=== PATIENT | female | born 1975 | race Caucasian/White ===

== ENCOUNTER → 2020-01-24 15:46 | Outpatient (BNVA) | payer SELFPAY | PROVIDERS: Referring Provider Dermatology; Visit Provider Dermatology | DX: R61 Generalized hyperhidrosis (principal); L98.8 Other specified disorders of the skin and subcutaneous tissue; Z41.1 Encounter for cosmetic surgery | CPT/HCPCS: J0585 ==

== ENCOUNTER 2020-02-20 11:56 | Emergency (ER) | payer SELFPAY ==
[2020-02-20 12:11] VITALS: BP 124/81; PULSE 86; RESP 16; TEMP 36.9; O2SAT 98; BMI 32.8
[2020-02-20 13:36] LABS: Alanine Aminotransferase 18 U/L (0-33); Albumin Level 4.6 g/dL (3.5-5.2); Alkaline Phosphatase 89 IU/L (35-105); Anion Gap 14.3 (5-19); Aspartate Amino Transferase 14 U/L (0-32); Blood Urea Nitrogen 7 mg/dL (6-20); Calcium 9.6 mg/dL (8.5-10.5); Carbon Dioxide 24 mmol/L (22-29); Chloride 104 mmol/L (98-107); Globulin 2.6 g/dL (1.3-4.6); Glomerular Filtration Rate 67.7 mL/min (90-130); Glucose 109 mg/dL (65-115); Lipase 24 U/L (13-60); Osmolality Calculated 285 mOsm/kg (285-295); Potassium 4.3 mmol/L (3.5-5.1); Sodium 138 mmol/L (136-145); Total Bilirubin 0.2 mg/dL (0.15-1.2); Total Protein 7.2 g/dL (6.6-8.7)
[2020-02-20 13:48] LABS: Basophils # 0.1 10^3/uL (0.0-0.1); Basophils % 0.7 %; Eosinophils # 0.1 10^3/uL (0.0-0.8); Eosinophils % 1.3 %; Hematocrit 45.5 % (37.0-47.0); Lymphocytes # 2.4 10^3/uL (0.8-4.8); Lymphocytes % 34.8 %; Mean Corpuscular Hemoglobin 31.8 pg (28.0-34.0); Mean Corpuscular Volume 96.4 fL (81-99); Mean Platelet Volume 9.1 fL (7.4-10.4); Monocytes # 0.7 10^3/uL (0.2-0.9); Monocytes % 10.6 %; Neutrophils # 3.63 10^3/uL (1.8-7.7); Neutrophils % 52.3 %; Nucleated Red Blood Cells % 0 %; Platelet Count 322 10^3/cmm (130-400); Red Blood Count 4.72 10^6/uL (4.1-5.3); Red Cell Distribution Width 12.3 % (12.1-15.1)
--- NOTE | 2020-02-20 15:16 | XR_ITS ---
WS: [id number] XR KUB [id number] REASON FOR EXAM: abdominal pain FINDINGS: Postoperative abdomen/pelvis with long line of small sg in the midline mid pelvis. No retroperitoneal air or free air. Moderate amount of stool in the right and left colon. No findings of bowel obstruction. No mass or significant calcification identified. XR/XR KUB 26795 IMPRESSION: No acute abnormality.
--- NOTE | 2020-02-20 15:17 | W.ED.ABDPA2 ---
HPI - Abdominal Pain General: Chief Complaint: Abdominal Pain Stated Complaint: RUPTURED CYST Time Seen by Provider: 02/20/20 14:59 History of Present Illness: HPI narrative: 44-year-old female patient presents to the emergency department with complaints of lower pelvic pain. She reports history of ovarian cyst, history of partial hysterectomy. She reports pain was as bad as labor pain she experienced last night. She went to urgent care this morning secondary to continued pain, urine was negative and was advised to come to the ER for evaluation. She reports completed AZO tablets due to urinary frequency and feeling of inability to empty her bladder. She reports AZO tablets have not helped. MD elicited complaint: abdominal pain Onset (ago): day(s) (1) Pain Consistency: intermittent Location: LLQ, Suprapubic and Pelvis Severity: moderate Quality: cramping and dull Migration to: L flank Exacerbating factors: nothing Associated Symptoms: Reports GI cramping, dysuria and nausea; Denies change in stool character, chills, fever(s), heartburn, hematochezia, hematuria and vomiting Review of Systems General: Reports: 10 or more systems reviewed and unremarkable except in HPI and below Const: Denies: fever(s), chills or diaphoresis Eyes: Denies: blurry vision or eye redness ENMT: Denies: throat pain, dental pain or disequilibrium Card: Denies: chest pain, palpitations or irregular heart rhythm Resp: Denies: dyspnea, productive cough, non-productive cough or wheezing GI: Reports: abdominal pain, nausea and GI cramping; Denies: vomiting, heartburn, pain on defecation, change in stool character or hematochezia : Reports: dysuria, urinary frequency, urinary urgency and pelvic pain; Denies: difficulty voiding, urinary incontinence, hematuria or dysmenorrhea Musc: Denies: neck pain, back pain, extremity pain or joint pain Skin/Breast: Denies: rash or pruritus Neuro: Denies: headache(s), weakness in extremities or behavioral changes Psych: Denies: anxiety or depression Andrey/Lymph: Denies: easy bruising PFSH ED PFSH: Family History Other No pertinent family history in first degree relatives Social History Smoking and tobacco status: never smoked Alcohol intake: never History of recent travel: Yes Physical Exam Const: COMMON NORMALS: no acute distress, patient oriented x3, healthy appearing and alert GENERAL APPEARANCE: cooperative, comfortable and well hydrated HENMT: COMMON NORMALS: normocephalic, Normal external nose present and moist oral mucous membranes HEAD & SCALP: normocephalic NOSE: Normal external nose present Eye: COMMON NORMALS: Equal, round and reactive pupils present and EOMs intact bilaterally GENERAL EYE: appearance normal, both eyes and all related structures PUPIL: Yes Equal, round and reactive pupils present Neck/C-Spine: COMMON NORMALS: full ROM and no lymphadenopathy GENERAL: Yes normal visual inspection and Yes trachea midline CERVICAL SPINE: Yes cervical ROM normal Lymph: LYMPHATIC: no lymphadenopathy noted Chest: COMMONS NORMALS: normal inspection of the chest Resp: COMMON NORMALS: normal respiratory effort and clear to auscultation bilaterally AUSCULTATION: clear to auscultation bilaterally Cardio: COMMON NORMALS: regular rhythm, S1 normal heart sound present and S2 normal heart sound present RHYTHM: regular rhythm HEART SOUNDS: S1 normal heart sound present and S2 normal heart sound present GI: COMMON NORMALS: Soft to palpation INSPECTION: Yes normal to inspection, No abdominal wall ecchymosis and No abdominal distension PALPATION: Yes Soft to palpation, No Firmness to palpation present (GI), Yes Tenderness to palpation present (GI), No Splenomegaly present and Yes Bladder palpation abnormal Details: tender : BLADDER/KIDNEY EXAM: Yes Bladder palpation abnormal and Yes CVA tenderness on the left Back/Pelvis: COMMON NORMALS: thoracic and lumbar spine normal to inspection GENERAL BACK: Yes CVA tenderness Extremity: COMMON NORMALS: normal to inspection and capillary refill normal Neuro: COMMON NORMALS: patient oriented x3 and no focal motor deficits SENSORIUM/ORIENTATION: Yes alert Psych: COMMON NORMALS: mental status grossly normal, Normal thought process present and cooperative ACTIVITY/MOTOR BEHAVIOR: Yes appropriate eye contact THOUGHT PROCESS: Normal thought process present Skin: COMMON NORMALS: no rashes or lesions noted and turgor normal GENERAL SKIN EXAM: no rashes or lesions noted and turgor normal Course ED course: 44-year-old female patient presents to the emergency department with complaints of pelvic pain x24 hours. Renal stone CT completed due to patient's complaint of urinary symptoms, urinary urgency and frequency with history of kidney stone, KUB also completed with normal findings. CT scan appreciated 15 mm partially calcified lesion from the right vaginal cuff, patient will follow-up Dr. Macias in 2 to 3 weeks, pelvic ultrasound has been requested, transvaginal due to patient's pain. Case discussed with Dr. Barr, hydrocodone will be prescribed for pain. To continue ibuprofen, serology and radiology findings discussed with the patient and spouse, questions were answered, agrees to Return to the emergency department if she develops worsening pelvic pain, vaginal bleeding or new concerning symptoms. Pelvic pain was not completed secondary to the amount of COVID patient's in the emergency department. Consultations: Consultation #1: Dr Macias, case discussed, serology, urinalysis and abnormal finding on CT scan of 15 mm vertical lesion, partially calcified, noted. Agrees to see patient in the office for follow-up 2 to 3 weeks, will proceed with outpatient order of pelvic ultrasound. Time: 17:00 Vital Signs: Vital signs: Vital Signs Temperature 98.4 F 02/20/20 12:11 Pulse Rate 88 02/20/20 15:18 Respiratory Rate 18 02/20/20 15:53 Blood Pressure 133/88 02/20/20 15:18 Pulse Oximetry 100 02/20/20 15:18 MDM - Abdominal Pain Lab Data: Labs: Lab Results 02/20/20 02/20/20 02/20/20 Range/Units 13:12 13:12 15:20 WBC 7.0 (4.0-10.0) 10^3/ uL RBC 4.72 (4.1-5.3) 10^6/u L Hgb 15.0 (11.5-15.3) g/dL Hct 45.5 (37.0-47.0) % MCV 96.4 (81-99) fL MCH 31.8 (28.0-34.0) pg MCHC 33.0 (30.0-36.0) g/dL RDW 12.3 (12.1-15.1) % Plt Count 322 (130-400) 10^3/c mm MPV 9.1 (7.4-10.4) fL Neut % (Auto) 52.3 % Lymph % (Auto) 34.8 % [place] % (Auto) 10.6 % Eos % (Auto) 1.3 % Baso % (Auto) 0.7 % Neut # (Auto) 3.63 (1.8-7.7) 10^3/u L Lymph # (Auto) 2.4 (0.8-4.8) 10^3/u L [place] # (Auto) 0.7 (0.2-0.9) 10^3/u L Eos # (Auto) 0.1 (0.0-0.8) 10^3/u L Baso # (Auto) 0.1 (0.0-0.1) 10^3/u L Nucleated RBC % (a uto) 0 % Nucleated RBCs # 0.0 /100WBC Sodium 138 (136-145) mmol/L Potassium 4.3 (3.5-5.1) mmol/L Chloride 104 (98-107) mmol/L Carbon Dioxide 24 (22-29) mmol/L Anion Gap 14.3 (5-19) BUN 7 (6-20) mg/dL Creatinine 0.9 (0.5-0.9) mg/dL GFR Calculation 67.7 L (90-130) mL/min Glucose 109 (65-115) mg/dL Calculated Osmolal ity 285 (285-295) mOsm/k g Calcium 9.6 (8.5-10.5) mg/dL Total Bilirubin 0.2 (0.15-1.2) mg/dL AST 14 (0-32) U/L ALT 18 (0-33) U/L Alkaline Phosphata se 89 (35-105) IU/L Total Protein 7.2 (6.6-8.7) g/dL Albumin 4.6 (3.5-5.2) g/dL Globulin 2.6 (1.3-4.6) g/dL Lipase 24 (13-60) U/L Urine Color Yellow (Yellow) Urine Appearance Clear (CLEAR) Urine pH 5 (5-7) Ur Specific Gravit y 1.025 (1.005-1.030) Urine Protein Neg (Negative) Urine Glucose (UA) Norm (Normal) Urine Ketones Negative (Negative) Urine Blood Neg (Negative) Urine Nitrate Negative (Negative) Urine Bilirubin Neg (Negative) Urine Urobilinogen Norm (Negative) mg/dL Ur Leukocyte [place] ase Negative (Negative) Imaging Data ^: Other Xray: Radiologist's impression: [address] [place] [address] XRay Report Signed Patient: Radha Edwards Unit #: [id number] : 1975 Age/Sex: 44 / F ADM Date: 02/20/20 Loc: ER Room/Bed: Attending Dr: Ordering Provider/Ordering MD: Breanne Cannon Date of Service: 02/20/20 Procedure(s): XR KUB 70101 Accession Number(s): [id number] Report Number: [id number] WS: [id number] XR KUB 18950 REASON FOR EXAM: abdominal pain FINDINGS: Postoperative abdomen/pelvis with long line of small sg in the midline mid pelvis. No retroperitoneal air or free air. Moderate amount of stool in the right and left colon. No findings of bowel obstruction. No mass or significant calcification identified. XR/XR KUB [id number] IMPRESSION: No acute abnormality. Dictated By: Jose Reyes Jr, MD Signed By: Jose Reyes Jr, MD Signed Date/Time: 02/20/20 1554 DD/ 1552 US: Radiologist's impression: [address] [place] [address] CT Scan Report Signed Patient: Radha Edwards Unit #: [id number] : 1975 Age/Sex: 44 / F ADM Date: 02/20/20 Loc: ER Room/Bed: Attending Dr: Ordering Provider/Ordering MD: Breanne Cannon Date of Service: 02/20/20 Procedure(s): CT kidney stone [id number] Accession Number(s): [id number] Report Number: [id number] PROCEDURE INFORMATION: Exam: CT Abdomen And Pelvis Without Contrast Exam date and time: 02/20/2020 3:25 PM Age: 44 years old Clinical indication: Abdominal pain; Prior surgery; Surgery type: Partial hysterectomy; Patient HX: Left flank pain. History of ovarian cancer and prior nephrolithiasis. TECHNIQUE: Imaging protocol: Computed tomography of the abdomen and pelvis without contrast. Radiation optimization: All CT scans at this facility use at least one of these dose optimization techniques: automated exposure control; mA and/or kV adjustment per patient size (includes targeted exams where dose is matched to clinical indication); or iterative reconstruction. COMPARISON: No relevant prior studies available. RADIATION DOSE METRICS: Total DLP (mGy-cm): 1561.09 FINDINGS: Liver: No mass. Gallbladder and bile ducts: Unremarkable. No ductal dilation. Pancreas: Normal. No ductal dilation. Spleen: Normal. No splenomegaly. Adrenals: Normal. No mass. Kidneys and ureters: No calculus or hydronephrosis. Stomach and bowel: No acute findings. No obstruction. No mucosal thickening. Appendix: No evidence of appendicitis. Intraperitoneal space: No free fluid or pneumoperitoneum. Vasculature: No abdominal aortic aneurysm. Lymph nodes: No significant adenopathy. Urinary bladder: Unremarkable as visualized. Reproductive: Hysterectomy. Small partially calcified lesion estimated at 15 mm arising from the right vaginal cuff; recommend direct comparison with prior examination or consider follow-up ultrasound. Bones/joints: No acute findings. Soft tissues: Unremarkable. CT/CT kidney stone [id number] IMPRESSION: No acute findings. Additional findings as above. Radiation Dose CTDIVOL = (mGy): DLP = 1561.09 (mGy-cm) Discharge Plan Discharge Patient Disposition: Home Clinical Impression: Pelvic pain, Abnormal CT of the abdomen, Soft tissue lesion of pelvic region Condition: Stable Prescriptions: New hydrocodone-acetaminophen 5-325 mg tablet 1 tab PO QID PRN (Reason: pain) Qty: 14 RF: 0 ibuprofen 800 mg tablet 800 mg PO TID PRN (Reason: pain) Qty: 20 RF: 0 Zofran 4 mg tablet 4 mg PO TID PRN (Reason: nausea and vomiting) 4 Days Qty: 10 RF: 0 No Action Botox Cosmetic 50 unit recon soln 30 unit IM ONCE Qty: 1 RF: 0 levothyroxine 75 mcg capsule 75 mcg PO DAILY RF: 0 venlafaxine 25 mg tablet 25 mg PO DAILY RF: 0 bupropion HCl 75 mg tablet 75 mg PO DAILY RF: 0 Discharge Orders: Discharge Order (Routine); Ordered 02/20/20 Ordered By: Breanne Cannon Discharge Diet: Usual diet Discharge Activity: Resume usual activity Patient Instructions: Pelvic Pain Activity Restrictions/Additional Instructions: No intercourse as this can precipitate pain You be scheduled to follow-up with [facility] [employer], outpatient pelvic ultrasound has been ordered today, you will be contacted by social work job titles from the hospital with appointment dates and times Take hydrocodone sparingly, medication is addictive, it is not uncommon for narcotics to cause nausea, Zofran has been prescribed for nausea. If you develop worsening abdominal pain, vaginal bleeding, or worsening symptoms such as fever, inability to keep fluids down despite use of Zofran, return to the emergency department. Coding Level of Care Code ED P[employer] And Penc[employer] Dipper for Chg Fwd Exam Comprehensive
[2020-02-20 15:18] VITALS: BP 133/88; PULSE 88; RESP 18; O2SAT 100
--- NOTE | 2020-02-20 15:21 | CTR_ITS ---
PROCEDURE INFORMATION: Exam: CT Abdomen And Pelvis Without Contrast Exam date and time: 02/20/2020 3:25 PM Age: 44 years old Clinical indication: Abdominal pain; Prior surgery; Surgery type: Partial hysterectomy; Patient HX: Left flank pain. History of ovarian cancer and prior nephrolithiasis. TECHNIQUE: Imaging protocol: Computed tomography of the abdomen and pelvis without contrast. Radiation optimization: All CT scans at this facility use at least one of these dose optimization techniques: automated exposure control; mA and/or kV adjustment per patient size (includes targeted exams where dose is matched to clinical indication); or iterative reconstruction. COMPARISON: No relevant prior studies available. RADIATION DOSE METRICS: Total DLP (mGy-cm): 1561.09 FINDINGS: Liver: No mass. Gallbladder and bile ducts: Unremarkable. No ductal dilation. Pancreas: Normal. No ductal dilation. Spleen: Normal. No splenomegaly. Adrenals: Normal. No mass. Kidneys and ureters: No calculus or hydronephrosis. Stomach and bowel: No acute findings. No obstruction. No mucosal thickening. Appendix: No evidence of appendicitis. Intraperitoneal space: No free fluid or pneumoperitoneum. Vasculature: No abdominal aortic aneurysm. Lymph nodes: No significant adenopathy. Urinary bladder: Unremarkable as visualized. Reproductive: Hysterectomy. Small partially calcified lesion estimated at 15 mm arising from the right vaginal cuff; recommend direct comparison with prior examination or consider follow-up ultrasound. Bones/joints: No acute findings. Soft tissues: Unremarkable. CT/CT kidney stone [id number] IMPRESSION: No acute findings. Additional findings as above. Radiation Dose CTDIVOL = (mGy): DLP = 1561.09 (mGy-cm)
[2020-02-20] MEDS: ondansetron 4 MG Tablet PO (15:33)
[2020-02-20 15:34] LABS: Add Urine Microscopic? NO
[2020-02-20 15:53] VITALS: RESP 18
[2020-02-20 15:54] LABS: Bilirubin Urine Neg (Negative); Blood Urine Neg (Negative); Glucose Urine UA Norm (Normal); Ketones Urine Negative (Negative); Leukocyte Esterase Urine Negative (Negative); Nitrate Urine Negative (Negative); Protein Urine Neg (Negative); Specific Gravity, Urine 1.025 (1.005-1.030); Urine Appearance Clear (CLEAR); Urine Color Yellow (Yellow); Urobilinogen Urine Norm (Negative); pH Urine 5 (5-7)
[2020-02-20 17:19] VITALS: RESP 18
--- NOTE | 2020-02-21 09:35 | DCPLANNER ---
education and training manager had message to schedule a follow up appointment for patient with [facility]. education and training manager called the [facility] care [facility], spoke with Deepthi, gave clinic patients information. education and training manager was told that patients information would be printed and reviewed. Clinic will call patient with appointment information. education and training manager also had order for an outpatient pelvic ultrasound. education and training manager faxed order to centralized scheduling, will call for appointment information.
--- NOTE | 2020-02-24 08:08 | DCPLANNER ---
Patient has an appointment with [facility] scheduled for Thursday, February 27, 2020 at 10:[address] Brandt. Clinic will call patient with appointment information. Patient has a pelvic ultrasound scheduled for February at 3:45. Centralized scheduling will call patient with appointment information.
--- NOTE | 2020-03-15 11:20 | DCPLANNER ---
Patient had a follow up appointment scheduled for [facility] scheduled for 02.28.20 - patient did attend appointment. Patient had a ultrasound scheduled for 03.14.20 - appointment rescheduled.
== END 2020-02-20 17:19 | disposition home or self-care (01) ==
PROVIDERS: Family Medicine; Emergency Provider Nurse Practitioner Family
DX: N94.89 Other specified conditions associated with female genital organs and menstrual cycle (principal); R93.5 Abnormal findings on diagnostic imaging of other abdominal regions, including retroperitoneum
CPT/HCPCS: 12345; 74018; 74176; 80053; 81000; 81003; 83690; 85025; 87086; 99281; 99283; Q0162

== ENCOUNTER 2020-03-06 01:31 | Emergency (ER) | payer SELFPAY ==
[2020-03-06 01:36] VITALS: BP 148/110; PULSE 93; RESP 20; TEMP 36.5; O2SAT 98; BMI 32.4
--- NOTE | 2020-03-06 01:41 | ED_ITS ---
HPI - Abdominal Pain General: Chief Complaint: Abdominal Pain Stated Complaint: lower abd pain Time Seen by Provider: 03/06/20 01:32 Source: patient Mode of arrival: ambulatory Limitations: no limitations History of Present Illness: HPI narrative: 44-year-old female who has chronic abdominal pain. She states she been having abdominal pain for 15 years. Patient was seen here 2 weeks ago and had normal CT scan. She was seen by Dr. Brandt is having follow-up with urology tomorrow. She has had a partial hysterectomy. She states that overnight her pain is worsened and is now a 9 out of 10. Denies any fever. Denies any worsening improving factors. Denies any vomiting diarrhea. Associated Symptoms: Denies chills, dysuria and fever(s) Review of Systems Const: Denies: fever(s), chills, body aches or change in appetite Eyes: Denies: blurry vision or eye discomfort ENMT: Denies: throat pain or dental pain Card: Denies: chest pain Resp: Denies: dyspnea GI: Reports: abdominal pain : Denies: dysuria Musc: Denies: neck pain or back pain Skin/Breast: Denies: rash Neuro: Denies: headache(s) Psych: Denies: depression Andrey/Lymph: Denies: easy bruising All/Imm: Denies: urticaria PFSH ED PFSH: Medical History Hypothyroid Lupus Per patient report Surgical History S/P endometrial ablation S/P laparoscopic assisted vaginal hysterectomy (LAVH) Due to bleeding. Performed in [place] approximately 17 years ago. Still has ovaries. Family History Other No pertinent family history in first degree relatives Social History Smoking and tobacco status: never smoked Alcohol intake: never History of recent travel: Yes Physical Exam Const: COMMON NORMALS: no acute distress, patient oriented x3 and healthy appearing HENMT: COMMON NORMALS: normocephalic and atraumatic HEAD & SCALP: normocephalic and atraumatic Eye: COMMON NORMALS: Equal, round and reactive pupils present and EOMs intact bilaterally PUPIL: Yes Equal, round and reactive pupils present Neck/C-Spine: COMMON NORMALS: full ROM and supple Chest: COMMONS NORMALS: normal inspection of the chest and normal palpation of entire chest wall Resp: COMMON NORMALS: normal respiratory effort, No retractions, No use of accessory muscles and clear to auscultation bilaterally AUSCULTATION: clear to auscultation bilaterally Cardio: COMMON NORMALS: regular rate, regular rhythm and No murmurs present (Cardio) RATE: regular rate RHYTHM: regular rhythm GI: COMMON NORMALS: Normal to inspection, nondistended, normoactive bowel sounds present, Soft to palpation, non-tender and no masses PALPATION: Yes Soft to palpation Extremity: COMMON NORMALS: normal to inspection and full ROM Neuro: COMMON NORMALS: patient oriented x3, moves all extremities and no focal motor deficits Psych: COMMON NORMALS: mental status grossly normal, Normal thought process present and cooperative THOUGHT PROCESS: Normal thought process present Skin: COMMON NORMALS: no rashes or lesions noted and no wounds GENERAL SKIN EXAM: no rashes or lesions noted Course Vital Signs: Vital signs: Vital Signs Temperature 97.7 F 03/06/20 01:36 Pulse Rate 88 03/06/20 01:52 Respiratory Rate 18 03/06/20 01:52 Blood Pressure 148/110 03/06/20 01:52 Pulse Oximetry 95 03/06/20 01:52 MDM - Abdominal Pain MDM Narrative: Medical decision making narrative: Patient presents here with abdominal pain that is chronic in nature. Patient had a recent CT that was normal. Patient's blood work here is all normal with no signs of acute surgical abdomen. Patient has follow-up with Dr. Aldridge today. Patient is return if worsening. Medical Records: Attestation: I reviewed the patient's medical records. Lab Data: Labs: Lab Results 03/06/20 03/06/20 03/06/20 Range/Units 01:47 01:47 02:26 WBC 6.4 (4.0-10.0) 10^3/ uL RBC 4.33 (4.1-5.3) 10^6/u L Hgb 13.9 (11.5-15.3) g/dL Hct 40.5 (37.0-47.0) % MCV 93.5 (81-99) fL MCH 32.1 (28.0-34.0) pg MCHC 34.3 (30.0-36.0) g/dL RDW 12.0 L (12.1-15.1) % Plt Count 388 (130-400) 10^3/c mm MPV 9.0 (7.4-10.4) fL Neut % (Auto) 50.2 % Lymph % (Auto) 35.6 % [place] % (Auto) 11.5 % Eos % (Auto) 1.6 % Baso % (Auto) 0.9 % Neut # (Auto) 3.19 (1.8-7.7) 10^3/u L Lymph # (Auto) 2.3 (0.8-4.8) 10^3/u L [place] # (Auto) 0.7 (0.2-0.9) 10^3/u L Eos # (Auto) 0.1 (0.0-0.8) 10^3/u L Baso # (Auto) 0.1 (0.0-0.1) 10^3/u L Nucleated RBC % (a uto) 0 % Nucleated RBCs # 0.0 /100WBC Sodium 139 (136-145) mmol/L Potassium 3.8 (3.5-5.1) mmol/L Chloride 105 (98-107) mmol/L Carbon Dioxide 22 (22-29) mmol/L Anion Gap 15.8 (5-19) BUN 8 (6-20) mg/dL Creatinine 0.7 (0.5-0.9) mg/dL GFR Calculation 90.5 (90-130) mL/min Glucose 130 H (65-115) mg/dL Calculated Osmolal ity 288 (285-295) mOsm/k g Calcium 9.2 (8.5-10.5) mg/dL Total Bilirubin 0.2 (0.15-1.2) mg/dL AST 29 (0-32) U/L ALT 32 (0-33) U/L Alkaline Phosphata se 98 (35-105) IU/L Total Protein 7.0 (6.6-8.7) g/dL Albumin 4.5 (3.5-5.2) g/dL Globulin 2.5 (1.3-4.6) g/dL Lipase 29 (13-60) U/L Urine Color Yellow (Yellow) Urine Appearance Sl cloudy A (CLEAR) Urine pH 6.0 (5-7) Ur Specific Gravit y 1.020 (1.005-1.030) Urine Protein Neg (Negative) Urine Glucose (UA) Norm (Normal) Urine Ketones Negative (Negative) Urine Blood 3+ H (Negative) Urine Nitrate Negative (Negative) Urine Bilirubin Neg (Negative) Urine Urobilinogen 4 H (Negative) mg/dL Ur Leukocyte [place] ase Negative (Negative) Urine RBC 40-50 H (0-2) /hpf Urine WBC 0-4 H (0-5) /hpf Ur Squamous Epith Cells 10-15 H (0-5) /hpf Amorphous Sediment Not Reportable Urine Bacteria 1+ H (NONE) /hpf Urine Mucus 1+ /hpf Discharge Plan Discharge Patient Disposition: Home Clinical Impression: Abdominal pain Qualifiers: Abdominal location: generalized Qualified Code(s): R10.84 - Generalized abdominal pain Condition: Stable Prescriptions: No Action estradiol 0.5 mg tablet 0.5 mg PO DAILY Qty: 30 RF: 12 duloxetine [Cymbalta] 30 mg capsule,delayed release(DR/EC) 30 mg PO DAILY Qty: 30 RF: 12 Botox Cosmetic 50 unit recon soln 30 unit IM ONCE Qty: 1 RF: 0 levothyroxine 75 mcg capsule 75 mcg PO DAILY RF: 0 bupropion HCl 75 mg tablet 75 mg PO DAILY RF: 0 ibuprofen 800 mg tablet 800 mg PO TID PRN (Reason: pain) Qty: 20 RF: 0 Discharge Orders: Discharge Order (Routine); Ordered 03/06/20 Ordered By: Yohannes Temple Referrals: Valerio Farnsworth MD [Primary Care Provider] - 1-3 days Discharge Diet: Advance as tolerated Discharge Activity: Resume usual activity Patient Instructions: Abdominal Pain (ED) Coding Level of Care Code ED Aircraft Engine Mechanic Overhaul for Chg Fwd Exam Comprehensive
[2020-03-06] MEDS: metoclopramide 5 mg/mL SDV 2 mL 10 MG IVP (01:46)
[2020-03-06] MEDS: diphenhydrAMINE 50 mg/mL SDV 1mL IVP (01:47)
[2020-03-06 01:49] VITALS: RESP 18; O2SAT 96
[2020-03-06] MEDS: HYDROmorphone 1 mg/mL INJ 1 mL IVP ×2 (01:49→03:07)
[2020-03-06 01:52] VITALS: BP 148/110; PULSE 88; RESP 18; O2SAT 95
[2020-03-06 02:15] LABS: Basophils # 0.1 10^3/uL (0.0-0.1); Basophils % 0.9 %; Eosinophils # 0.1 10^3/uL (0.0-0.8); Eosinophils % 1.6 %; Hematocrit 40.5 % (37.0-47.0); Hemoglobin 13.9 g/dL (11.5-15.3); Lymphocytes # 2.3 10^3/uL (0.8-4.8); Lymphocytes % 35.6 %; Mean Corpuscular HGB Conc 34.3 g/dL (30.0-36.0); Mean Corpuscular Hemoglobin 32.1 pg (28.0-34.0); Mean Corpuscular Volume 93.5 fL (81-99); Monocytes # 0.7 10^3/uL (0.2-0.9); Monocytes % 11.5 %; Neutrophils # 3.19 10^3/uL (1.8-7.7); Neutrophils % 50.2 %; Nucleated Red Blood Cells % 0 %; Platelet Count 388 10^3/cmm (130-400); Red Blood Count 4.33 10^6/uL (4.1-5.3); White Blood Count 6.4 10^3/uL (4.0-10.0)
[2020-03-06 02:29] LABS: Alanine Aminotransferase 32 U/L (0-33); Albumin Level 4.5 g/dL (3.5-5.2); Alkaline Phosphatase 98 IU/L (35-105); Aspartate Amino Transferase 29 U/L (0-32); Blood Urea Nitrogen 8 mg/dL (6-20); Calcium 9.2 mg/dL (8.5-10.5); Carbon Dioxide 22 mmol/L (22-29); Chloride 105 mmol/L (98-107); Creatinine Clr Calc Pharmacy 111.4805; Globulin 2.5 g/dL (1.3-4.6); Glomerular Filtration Rate 90.5 mL/min (90-130); Glucose 130 mg/dL (65-115); Lipase 29 U/L (13-60); Osmolality Calculated 288 mOsm/kg (285-295); Sodium 139 mmol/L (136-145); Total Bilirubin 0.2 mg/dL (0.15-1.2)
[2020-03-06 02:30] LABS: Anion Gap 15.8 (5-19); Potassium 3.8 mmol/L (3.5-5.1)
[2020-03-06 02:55] LABS: Bilirubin Urine Neg (Negative); Blood Urine 3+ (Negative); Glucose Urine UA Norm (Normal); Ketones Urine Negative (Negative); Nitrate Urine Negative (Negative); Protein Urine Neg (Negative); Urine Color Yellow (Yellow); Urobilinogen Urine 4 mg/dL (Negative)
[2020-03-06 02:56] LABS: Add Urine Microscopic? YES; Bacteria Urine 1+ /hpf; Leukocyte Esterase Urine Negative (Negative); Mucus Urine 1+ /hpf; RBC Urine 40-50 /hpf (0-2); WBC Urine 0-4 /hpf (0-5)
[2020-03-06 02:57] LABS: Add Urine Culture? No
[2020-03-06 03:07] VITALS: RESP 18; O2SAT 99
[2020-03-06 03:08] VITALS: BP 138/93; PULSE 75; RESP 18; O2SAT 99
[2020-03-06 03:25] VITALS: BP 138/93; PULSE 82; RESP 18; O2SAT 98
== END 2020-03-06 03:27 | disposition home or self-care (01) ==
PROVIDERS: Emergency Provider Emergency Medicine; PCP Obstetrics & Gynecology
DX: R10.84 Generalized abdominal pain (principal)
CPT/HCPCS: 12345; 80053; 81001; 83690; 85025; 96374; 96375; 99281; 99283; J1170; J1200; J2765

== ENCOUNTER 2020-04-02 13:50 | Outpatient (CLI) | payer OTHER, SELFPAY ==
--- NOTE | 2020-04-02 14:01 | US_ITS ---
WS: [id number] TRANSABDOMINAL PELVIC AND TRANSVAGINAL PELVIC ULTRASOUND HISTORY: PELVIC LESION INTERNAL COMPARISON: None available. Prior hysterectomy. No midline soft tissue mass identified. Right ovary: RIGHT ovary is not visualized. Left ovary: 2.6 cm x 1.7 cm x 1.4 cm. Normal size ovary. Normal vascularity. Adjacent and lateral to the LEFT ovary is an ovoid minimally complex cystic mass measuring 2.0 x 1.0 x 1.5 cm. No increased v ascularity. No free fluid. US/US pelvic with transvaginal IMPRESSION: 1. Prior hysterectomy. 2. Normal size LEFT ovary with an adjacent cystic structure measuring 2.0 x 1. 0 x 1.5 cm. Differential includes exophytic ovarian cyst, endometrioma or parao varian cyst. No solid mass identified.
== END 2020-04-02 13:51 | disposition home or self-care (01) ==
LOC: RAD 13:59
PROVIDERS: Visit Provider Nurse Practitioner Family
DX: N94.89 Other specified conditions associated with female genital organs and menstrual cycle (principal)
CPT/HCPCS: 76830; 76856

== ENCOUNTER 2020-05-24 11:19 | Emergency (ER) | payer OTHER, SELFPAY ==
[2020-05-24 11:54] VITALS: BP 118/80; PULSE 97; RESP 20; TEMP 37.7; O2SAT 93; BMI 32.9
[2020-05-24 12:54] VITALS: BP 122/83; PULSE 97; RESP 20; TEMP 37.7; O2SAT 93
--- NOTE | 2020-05-24 12:55 | PC.NURSE ---
In COVID waiting room.
--- NOTE | 2020-05-24 13:35 | XR_ITS ---
WS: [id number] Portable AP upright chest, 05/24/2020 Clinical Data: dypsena/covid Comparison: None. Findings: No nodules, masses or effusions are seen. The heart is normal. The pulmonary vascularity is not increased. No pneumothorax is seen. Patchy peripheral opacities are seen in the right middle lob e, right lower lobe and the right upper lobe. The left lung shows minimal opacity in the left lower l obe. . XR/XR chest 1V portable [id number] Impression: Minimal patchy opacities in right lung and left lower lobe which are consistent with pneumonia.
--- NOTE | 2020-05-24 14:07 | ED_ITS ---
HPI - COVID General: Chief Complaint: COVID symptoms Stated Complaint: SOB, HARD SWALLOW, COVID POSITIVE Time Seen by Provider: 05/24/20 13:35 Triage information: Has fever, cough or shortness of breath . Exposure to COVID + person last 14 days History of Present Illness: HPI Narrative: 44 yo female present 2 days after a positive covid test and approximately 8-10 days after onset of symtpoms. She is having persistent nausea and vomiting unable to keep any food or fluids down mild cough. Her nausea and vomiting and flulike myalgias are her predominant symptoms. MD complaint: known COVID positive Prior covid testing: yes, results known Prior testing date: 05/22/20 COVID 19 common symptoms: positive fever(s), chills, cough, non-productive cough, dyspnea, fatigue, body aches, nasal congestion, nausea and vomiting COVID 19 other sytmptoms: negative chest pain or requiring oxygen Onset (ago): day(s) Severity: moderate Treatment prior to arrival: acetaminophen, ibuprofen and other (Antiemetics) COVID Results: No Data to Display Review of Systems Const: Reports: fever(s), chills, body aches and fatigue ENMT: Reports: nasal congestion Card: Denies: chest pain, edema, dyspnea on exertion or orthopnea Resp: Reports: dyspnea and non-productive cough GI: Reports: nausea and vomiting : Denies: flank pain, difficulty voiding, dysuria, urinary frequency or urinary urgency Skin/Breast: Denies: rash or pruritus PFSH ED PFSH: Medical History (Updated 05/24/20 @ 17:48 by Chi Santiago DO) Hypothyroid Lupus Per patient report. Patient presumably diagnosed 5 years ago not on medications does not see orthodontic assistant Surgical History S/P endometrial ablation S/P laparoscopic assisted vaginal hysterectomy (LAVH) Due to bleeding. Performed in [place] approximately 17 years ago. Still has ovaries. Family History Other No pertinent family history in first degree relatives Social History Smoking and tobacco status: never smoked Alcohol intake: never Marital status: Current occupational status: unemployed History of recent travel: Yes Physical Exam Const: COMMON NORMALS: no acute distress GENERAL APPEARANCE: cooperative and comfortable ORIENTATION/CONSCIOUSNESS: Yes awake, Yes oriented to person, Yes oriented to place and Yes oriented to time HENMT: COMMON NORMALS: normocephalic, atraumatic and hearing grossly normal bilaterally HEAD & SCALP: normocephalic and atraumatic Neck/C-Spine: COMMON NORMALS: no JVD Lymph: LYMPHATIC: no lymphadenopathy noted and no lymphedema noted Resp: COMMON NORMALS: normal respiratory effort, No retractions, No use of accessory muscles and clear to auscultation bilaterally AUSCULTATION: clear to auscultation bilaterally Cardio: COMMON NORMALS: no JVD, regular rate, regular rhythm and No murmurs present (Cardio) RATE: regular rate RHYTHM: regular rhythm GI: COMMON NORMALS: No hepatosplenomegaly present AUSCULTATION: Yes normoactive bowel sounds PALPATION: Yes Tenderness to palpation present (GI), No Guarding due to palpation present (GI) and Yes No hepatosplenomegaly present Extremity: COMMON NORMALS: normal to inspection, capillary refill normal, no clubbing, cyanosis or edema, no calf tenderness and no pedal edema Neuro: SENSORIUM/ORIENTATION: Yes oriented to person, Yes oriented to place and Yes oriented to time Skin: COMMON NORMALS: no rashes or lesions noted GENERAL SKIN EXAM: no rashes or lesions noted Course Vital Signs: Vital signs: Vital Signs Temperature 99.8 F H 05/24/20 12:54 Pulse Rate 97 05/24/20 15:04 Respiratory Rate 16 05/24/20 15:04 Blood Pressure 128/80 05/24/20 15:04 Pulse Oximetry 97 05/24/20 15:15 MDM - COVID MDM Narrative: Medical decision making narrative: Made attempts to treat the patient as an outpatient however she has persistent nausea vomiting she is requiring 3 L by nasal cannula fairly extensive groundglass infiltrates and mild immune suppression. We initially plan to admit her however. We have multiple boarded patients down here and do not anticipate any other rooms opening up. And talk to Dr. Rios. We were able to find a bed at [facility] in [place] talk to Dr. Veronica Peguero he will accept the patient orders for transfer have been written. Lab Data: Labs: Lab Results 05/24/20 05/24/20 05/24/20 Range/Units 14:53 14:53 14:53 WBC 1.5 L (4.0-10.0) 10^3/ uL RBC 4.34 (4.1-5.3) 10^6/u L Hgb 13.5 (11.5-15.3) g/dL Hct 41.2 (37.0-47.0) % MCV 94.9 (81-99) fL MCH 31.1 (28.0-34.0) pg MCHC 32.8 (30.0-36.0) g/dL RDW 12.2 (12.1-15.1) % Plt Count 323 (130-400) 10^3/c mm MPV 8.6 (7.4-10.4) fL Neut % (Auto) 54.0 % Lymph % (Auto) 25.7 % Green % (Auto) 18.9 % Eos % (Auto) 0.0 % Baso % (Auto) 0.7 % Neut # (Auto) 0.80 L* (1.8-7.7) 10^3/u L Lymph # (Auto) 0.4 L (0.8-4.8) 10^3/u L Green # (Auto) 0.3 (0.2-0.9) 10^3/u L Eos # (Auto) 0.0 (0.0-0.8) 10^3/u L Baso # (Auto) 0.0 (0.0-0.1) 10^3/u L Nucleated RBC % (a uto) 0 % Nucleated RBCs # 0.0 /100WBC D-Dimer 0.88 H (0-0.59) ug/mIFE U Sodium 134 L (136-145) mmol/L Potassium 4.1 (3.5-5.1) mmol/L Chloride 97 L (98-107) mmol/L Carbon Dioxide 25 (22-29) mmol/L Anion Gap 16.1 (5-19) BUN 11 (6-20) mg/dL Creatinine 0.7 (0.5-0.9) mg/dL GFR Calculation 90.5 (90-130) mL/min Glucose 133 H (65-115) mg/dL Calculated Osmolal ity 279 L (285-295) mOsm/k g Calcium 8.7 (8.5-10.5) mg/dL Total Bilirubin 0.3 (0.15-1.2) mg/dL AST 39 H (0-32) U/L ALT 27 (0-33) U/L Alkaline Phosphata se 152 H (35-105) IU/L Total Protein 7.1 (6.6-8.7) g/dL Albumin 4.0 (3.5-5.2) g/dL Globulin 3.1 (1.3-4.6) g/dL COVID Results: No Data to Display Discharge Plan Discharge Patient Disposition: Xfer Short-Term Hosp Clinical Impression: COVID-19, Nausea & vomiting Condition: Stable Coding Level of Care Code ED Station Engineer for Abeba Fwd Exam Comprehensive
[2020-05-24] MEDS: ondansetron 2 mg/ML SDV 2 mL 4 MG IVP (14:44)
[2020-05-24] MEDS: sodium chloride 0.9% 1,000 ML 999 ML IV ×2 (14:58→16:07)
[2020-05-24 15:04] VITALS: BP 128/80; PULSE 97; RESP 16; O2SAT 89
[2020-05-24 15:10] LABS: Basophils % 0.7 %; Hematocrit 41.2 % (37.0-47.0); Hemoglobin 13.5 g/dL (11.5-15.3); Lymphocytes # 0.4 10^3/uL (0.8-4.8); Lymphocytes % 25.7 %; Mean Corpuscular HGB Conc 32.8 g/dL (30.0-36.0); Mean Corpuscular Hemoglobin 31.1 pg (28.0-34.0); Mean Corpuscular Volume 94.9 fL (81-99); Mean Platelet Volume 8.6 fL (7.4-10.4); Monocytes # 0.3 10^3/uL (0.2-0.9); Monocytes % 18.9 %; Nucleated Red Blood Cells % 0 %; Platelet Count 323 10^3/cmm (130-400); Red Blood Count 4.34 10^6/uL (4.1-5.3); Red Cell Distribution Width 12.2 % (12.1-15.1); White Blood Count 1.5 10^3/uL (4.0-10.0)
[2020-05-24 15:15] VITALS: BP 128/80; PULSE 96; O2SAT 91; O2SAT 97
[2020-05-24 15:25] LABS: D Dimer 0.88 ug/mIFEU (0-0.59)
[2020-05-24 15:28] LABS: Alanine Aminotransferase 27 U/L (0-33); Alkaline Phosphatase 152 IU/L (35-105); Anion Gap 16.1 (5-19); Aspartate Amino Transferase 39 U/L (0-32); Blood Urea Nitrogen 11 mg/dL (6-20); Calcium 8.7 mg/dL (8.5-10.5); Carbon Dioxide 25 mmol/L (22-29); Chloride 97 mmol/L (98-107); Globulin 3.1 g/dL (1.3-4.6); Glomerular Filtration Rate 90.5 mL/min (90-130); Glucose 133 mg/dL (65-115); Osmolality Calculated 279 mOsm/kg (285-295); Potassium 4.1 mmol/L (3.5-5.1); Sodium 134 mmol/L (136-145); Total Bilirubin 0.3 mg/dL (0.15-1.2); Total Protein 7.1 g/dL (6.6-8.7)
--- NOTE | 2020-05-24 15:50 | CTR_ITS ---
PROCEDURE INFORMATION: Exam: CT Angiography Chest With Contrast Exam date and time: 05/24/2020 3:59 PM Age: 44 years old Clinical indication: Patient HX: Covid+ C/O cough, n/v and difficulty swallowing; Additional info: Dyspnea/covid TECHNIQUE: Imaging protocol: Computed tomographic angiography of the chest with intravenous contrast. 3D rendering (Not supervised by radiologist): MIP and/or 3D reconstructed images were created by the technologist. Total images: 784 Radiation optimization: All CT scans at this facility use at least one of these dose optimization techniques: automated exposure control; mA and/or kV adjustment per patient size (includes targeted exams where dose is matched to clinical indication); or iterative reconstruction. Contrast material: OMNI 350; Contrast volume: 66 ml; Contrast route: INTRAVENOUS (IV); COMPARISON: CR XR chest 1V portable [id number] 05/24/2020 1:47 PM RADIATION DOSE METRICS: Total DLP (mGy-cm): 523.68 FINDINGS: Pulmonary arteries: No visible evidence of pulmonary embolism/pulmonary arterial thrombus. Aorta: The thoracic aorta is nonaneurysmal. No visible intimal flap or dissection. Lungs: Bilateral patchy ground-glass interstitial lung disease with early subsegmental consolidation and associated air bronchograms involving primarily the right lung and left upper lobe with relative sparing of the lingula and left lower lobe consistent with active pneumonitis/pneumonia. Overall findings would be consistent with Covid-19 pneumonitis/pneumonia. Pleural space: Unremarkable. No pneumothorax. No pleural effusion. Heart: No visible significant coronary artery disease. No cardiomegaly. No visible pericardial effusion. Mediastinal space: Esophagus appears unremarkable. Lymph nodes: Mildly prominent mediastinal and hilar lymph nodes most likely reactive. Liver: Mild diffuse fatty infiltration of the liver. Gallbladder and bile ducts: Partial hepatization of the gallbladder. Bones/joints: No visible active or acute osseous pathology. Mild degenerative disease of the spine. Soft tissues: Unremarkable. CT/CT angio chest PE protcl [id number] IMPRESSION: 1. No visible evidence of pulmonary embolism/pulmonary arterial thrombus. 2. Findings consistent with Covid-19 pneumonitis/pneumonia as detailed in text. 3. Other nonurgent & nonemergent findings as detailed in text above. Radiation Dose CTDIVOL = (mGy): DLP = 523.68 (mGy-cm)
[2020-05-24] MEDS: promethazine 25 mg/mL SDV 1 mL IM (16:04)
[2020-05-24] MEDS: dexamethasone 4 mg/mL INJ 6 MG IVP (16:06)
[2020-05-24] MEDS: iohexol 350 mg/mL 100 mL Btl IV (16:36)
[2020-05-24 17:00] VITALS: BP 107/61; PULSE 97; O2SAT 94
[2020-05-24] MEDS: remdesivir 200 MG in sodium chloride 0.9% (100 ml) 100 ML 100 MG IV (18:29)
[2020-05-24 18:30] VITALS: BP 115/79; PULSE 103; O2SAT 94
[2020-05-24] MEDS: promethazine 25 mg/mL SDV 1 mL 12.5 MG IM (18:30)
== END 2020-05-24 19:05 | disposition short-term general hospital (02) ==
PROVIDERS: Emergency Provider Family Medicine
DX: U07.1 COVID-19 (principal); R11.2 Nausea with vomiting, unspecified
CPT/HCPCS: 12345; 71045; 71275; 80053; 85025; 85378; 96361; 96365; 96372; 96375; 99283; 99285; J1100; J2405; J2550; J7030; Q9967

== ENCOUNTER 2020-07-05 07:47 | Outpatient (CLI) | payer OTHER, SELFPAY ==
--- NOTE | 2020-07-05 07:59 | NM_ITS ---
WS: [id number] NUCLEAR MEDICINE HIDA SCAN WITH GALLBLADDER EJECTION FRACTION HISTORY: FATTY LIVER COMPARISON: 06/20/2020 TECHNIQUE: The patient was intravenously injected with 7.7 mCi of TC99m Mebrofenin. Immediate imaging over the right upper quadrant was followed by 5 minute image and additional images for a total of 60 minutes. Normal uptake of radiotracer throughout the liver. Activity identified in the gallbladder at 15 minutes and well distended by 60 minutes. Activity in the proximal small bowel was seen by 60 minutes. Good washout of the radiotracer from the liver by 60 minutes. The patient then drank 8 ounces of Ensure Plus. Ejection fraction at 60 minutes was 82%. Normal GB ej ection fraction is 35-75%. Post fatty meal symptoms: None. NM/NM hepatobiliary w phar* [id number] IMPRESSION: 1. Normal HIDA scan. 2. Normal gallbladder ejection fraction.
== END 2020-07-05 07:48 | disposition home or self-care (01) ==
PROVIDERS: PCP Nurse Practitioner; Visit Provider Nurse Practitioner
DX: K76.0 Fatty (change of) liver, not elsewhere classified (principal)
CPT/HCPCS: 78227; A9537

== ENCOUNTER 2020-08-06 20:00 | Outpatient (CLI) | payer OTHER, SELFPAY | END 2020-08-06 20:01 | disposition home or self-care (01) | LOC: SLEEP 08-07 08:16 | PROVIDERS: PCP Nurse Practitioner; Visit Provider Nurse Practitioner | DX: G47.10 Hypersomnia, unspecified (principal); R53.83 Other fatigue; R06.83 Snoring; G47.33 Obstructive sleep apnea (adult) (pediatric) | CPT/HCPCS: 95810 ==

== ENCOUNTER → 2020-08-14 11:06 | Outpatient (BNVA) | payer OTHER, SELFPAY | PROVIDERS: PCP Nurse Practitioner; Visit Provider Internal Medicine Rheumatology | DX: M32.9 Systemic lupus erythematosus, unspecified (principal); R21 Rash and other nonspecific skin eruption; R76.8 Other specified abnormal immunological findings in serum; Z79.899 Other long term (current) drug therapy; R10.32 Left lower quadrant pain; Z86.16 Personal history of COVID-19 | CPT/HCPCS: 99204 ==

== ENCOUNTER 2021-11-11 17:17 | Emergency (ER) | payer MEDICAID, SELFPAY ==
[2021-11-11 17:51] VITALS: BP 132/77; PULSE 88; RESP 14; TEMP 37; O2SAT 97; BMI 33.3
--- NOTE | 2021-11-11 17:59 | W.ED.BACK ---
HPI - Back Pain/Injury General: Chief Complaint: Back Pain/Injury Stated Complaint: back pain/burning Time Seen by Provider: 11/11/21 17:58 History of Present Illness: 46-year-old female comes in today with complaints of low back pain. Patient reports a history of a herniated disc in the past. Patient reports that she has been working in the garden and today she reached to get something and felt a sudden onset of pain and discomfort. Since that time patient has had some mild difficulty with urination but no loss of bowel or bladder control. Patient reports no fever. Patient appears in mild pain. Patient appears nontoxic. Review of Systems General: Reports: 10 or more systems reviewed and unremarkable except in HPI and below Card: Denies: chest pain Resp: Denies: dyspnea Musc: Reports: back pain Skin/Breast: Denies: rash PFSH ED PFSH: Medical History (Updated 11/11/21 @ 19:42 by NANDO Moreland) Chronic cystitis Hypothyroid Left groin pain Lupus Hx of positive serology? Skin rash Stress incontinence Surgical History S/P endometrial ablation S/P laparoscopic assisted vaginal hysterectomy (LAVH) Due to bleeding. Performed in [place] approximately 17 years ago. Still has ovaries. Family History (Updated 08/14/20 @ 11:57 by Paula Cornelius LPN) Other CAD (coronary artery disease) Cancer No pertinent family history in first degree relatives Rheumatoid arthritis Denies family history of Diabetes Lupus Hypertension Stroke Social History Smoking and tobacco status: never smoked Alcohol intake: never Marital status: Current occupational status: unemployed History of recent travel: Yes Physical Exam Const: COMMON NORMALS: alert Neck/C-Spine: COMMON NORMALS: full ROM Resp: COMMON NORMALS: normal respiratory effort Cardio: COMMON NORMALS: regular rate RATE: regular rate GI: COMMON NORMALS: non-tender Back/Pelvis: THORACIC SPINE/UPPER BACK: No thoracic spinal tenderness LUMBAR SPINE/LOWER BACK: No lumbar spinal tenderness and Yes paraspinal muscle tenderness Extremity: COMMON NORMALS: normal to inspection Neuro: SENSORIUM/ORIENTATION: Yes alert Skin: COMMON NORMALS: no rashes or lesions noted GENERAL SKIN EXAM: no rashes or lesions noted Course Vital Signs: Vital signs: Vital Signs Temperature 98.6 F 11/11/21 17:51 Pulse Rate 88 11/11/21 17:51 Respiratory Rate 14 11/11/21 17:51 Blood Pressure 132/77 11/11/21 17:51 Pulse Oximetry 97 11/11/21 17:51 MDM - Back Pain/Injury Medical Decision Making 46-year-old female comes in today with low back pain. Patient has a history of chronic back pain. Patient reports she was gardening and went to grab something and had sudden increase pain with radiation down her leg. On exam patient has no tenderness along the lumbar or thoracic spine. Patient does have bilateral muscle tenderness. Vital signs are normal. Differential diagnosis includes lumbar radiculopathy, lumbar strain, intervertebral disc disease, facet arthropathy. CT noted some multilevel degenerative changes of the spine. No sign of significant impingement of the spinal column. Reviewed exam with patient with recommendations for treatment follow-up with Dr. Webb at orthopedic spine clinic. Patient was written for some celecoxib and hydrocodone for her pain control. Patient was recommended to follow-up with primary care otherwise for further evaluation and treatment. Labs Radiology Impressions Lumbar Spine CT 11/11/21 18:07 IMPRESSION: 1. No fracture or acute finding. 2. Mild multilevel degenerative changes as described. Discharge Plan Discharge Patient Disposition: Home Clinical Impression: Lumbar radiculopathy Condition: Stable Prescriptions: New celecoxib 200 mg capsule 200 mg PO BID Qty: 30 0RF hydrocodone-acetaminophen 5-325 mg tablet 1 tab PO Q6H PRN (Reason: pain (scale score 7-10)) Qty: 10 0RF No Action bupropion HCl 300 mg tablet extended release 24 hr 300 mg PO QAM 0RF levothyroxine 88 mcg capsule 88 mcg PO DAILY 0RF glycopyrrolate 1 mg tablet 1 mg PO TID 0RF ibuprofen 800 mg tablet 800 mg PO TID PRN (Reason: pain) Qty: 20 0RF Discharge Orders: Discharge ED (Routine); Ordered 11/11/21 Ordered By: Teo Love Referrals: Carin Johnson NP [Primary Care Provider] - Discharge Diet: Usual diet Discharge Activity: Increase activity as tolerated Patient Instructions: Back Pain (ED) Activity Restrictions/Additional Instructions: Activity as tolerated. Gentle stretching and range of motion exercises. Drink plenty of water. Use acetaminophen and celecoxib for pain and inflammation. Use hydrocodone for severe pain. Follow-up with primary care for further instruction. Return to ER for new concerns such as fever greater than 100.4, loss of bowel or bladder control, or uncontrolled pain. Coding Level of Care Code ED Director Of Income Tax for Chg Fwd Exam Comprehensive
--- NOTE | 2021-11-11 18:07 | CTR_ITS ---
PROCEDURE INFORMATION: Exam: CT Lumbar Spine Without Contrast Exam date and time: 11/11/2021 6:44 PM Age: 46 years old Clinical indication: Weakness; Prior surgery; Surgery type: Hysterectomy; Patient HX: C/O low back pain with tingling in both legs. ; Additional info: Lumar radiculopathy TECHNIQUE: Imaging protocol: Computed tomography of the lumbar spine without contrast. Radiation optimization: All CT scans at this facility use at least one of these dose optimization techniques: automated exposure control; mA and/or kV adjustment per patient size (includes targeted exams where dose is matched to clinical indication); or iterative reconstruction. COMPARISON: CT kidney stone [id number] 02/20/2020 3:50 PM RADIATION DOSE METRICS: Total DLP (mGy-cm): 2101.6 FINDINGS: Bones/joints: The vertebral body alignment and stature is intact. No fracture or subluxation. The facets are intact with mild degenerative changes. L1-L2: No significant disc protrusion. No severe spinal canal stenosis. No significant neural foraminal narrowing. L2-L3: Mild circumferential disc bulge. Mild bilateral foraminal narrowing. No central canal stenosis. L3-L4: Mild circumferential disc bulge. Moderate bilateral foraminal stenosis. Mild central canal stenosis. L4-L5: Mild circumferential disc bulge. Mild bilateral foraminal stenosis. Mild central canal stenosis. L5-S1: Disc space narrowing with degenerative endplate changes. Mild circumferential disc bulge with posterior endplate spurring. Mild bilateral foraminal stenosis. No central canal stenosis. Soft tissues: Unremarkable. CT/CT lumbar spine wo con* [id number] IMPRESSION: 1. No fracture or acute finding. 2. Mild multilevel degenerative changes as described.
[2021-11-11] MEDS: ketorolac 30 mg/mL INJ IM (18:35)
[2021-11-11] MEDS: HYDROcodone-acetaminophen 7.5-325 mg Tablet 1 TAB PO (18:35)
--- NOTE | 2021-11-17 10:48 | DCPLANNER ---
Addendum entered by Rajwinder Allen 12/08/21 11:34: Patient had a follow up appointment scheduled for 12.04.21 with Anjel Germain at ortho - patient did attend appointment. Original Note: center human resources manager had message to schedule a follow up appointment for patient with ortho. center human resources manager sent patients information to the front office staff at ortho. Patients information will be printed and reviewed. Clinic will call patient with appointment information.
== END 2021-11-11 19:58 | disposition home or self-care (01) ==
PROVIDERS: Emergency Provider Nurse Practitioner Family; PCP Nurse Practitioner
DX: M54.16 Radiculopathy, lumbar region (principal)
CPT/HCPCS: 72131; 96372; 99284; J1885

== ENCOUNTER 2021-12-04 | Outpatient (CLI) | payer MEDICAID, SELFPAY | END 2021-12-04 23:59 | disposition home or self-care (01) | LOC: RAD 12-15 16:53 | PROVIDERS: PCP Nurse Practitioner; Visit Provider Physician Assistant | DX: M47.817 Spondylosis without myelopathy or radiculopathy, lumbosacral region (principal) | CPT/HCPCS: 72100 ==

== ENCOUNTER → 2021-12-04 09:56 | Outpatient (BNVA) | payer MEDICAID, SELFPAY | PROVIDERS: PCP Nurse Practitioner; Referring Provider Nurse Practitioner Family; Visit Provider Physician Assistant | DX: M54.16 Radiculopathy, lumbar region (principal); M51.37 Other intervertebral disc degeneration, lumbosacral region | CPT/HCPCS: 99203; 99204 ==

== ENCOUNTER → 2022-02-19 14:01 | Outpatient (BNVA) | payer MEDICAID, SELFPAY | PROVIDERS: PCP Nurse Practitioner; Visit Provider Physician Assistant | DX: M51.37 Other intervertebral disc degeneration, lumbosacral region (principal); M54.16 Radiculopathy, lumbar region | CPT/HCPCS: 72100; 72110 ==

== ENCOUNTER 2022-03-10 07:02 | Outpatient (CLI) | payer MEDICAID, SELFPAY ==
--- NOTE | 2022-03-10 07:15 | MR_ITS ---
WS: [id number] MRI LUMBAR SPINE NONCONTRAST TECHNIQUE: Sagittal T1, T2 and STIR imaging. Axial T1 and T2 imaging. CLINICAL INFORMATION: lumbar pain COMPARISON: CT 11/11/21 FINDINGS: Mild lumbar curve. No acute compression. Disc bulging worse L4-L5 and L5-S1. L1-L2: Normal. L2-L3: Mild annular bulging. Mild facet arthropathy. Spinal canal and foramen are patent. L3-L4: Mild annular bulging with a small annular fissure. Mild central canal stenosis and narrowing o f the thecal sac. Advanced facet arthropathy ligament flavum hypertrophy. Small facet effusions. Sugg estion of a tiny synovial cyst with narrowing of the RIGHT subarticular recess and traversing RIGHT L 4 nerve root. RIGHT eccentric disc bulging contacts the exiting RIGHT L3 nerve root. Prominent dorsal epidural fat. Mild to moderate RIGHT greater than LEFT foraminal narrowing. Impingement on the exiti ng RIGHT L3 nerve root. L4-L5: Central disc protrusion impinges the traversing LEFT L5 nerve root in the subarticular recess. Mild central canal stenosis. Moderate facet arthropathy. Mild LEFT foraminal narrowing. L5-S1: Shallow central disc protrusion slightly impinges the traversing RIGHT greater than LEFT S1 ne rve roots. Moderate facet arthropathy. Mild bilateral foraminal narrowing. Visualized pelvic bony structures: Normal. Paravertebral soft tissues: Normal. MR/MR lumbar spine wo con* [id number] IMPRESSION: 1. Mild central canal stenosis L3-L4 due to disc bulging with a small annular tear.Advanced facet arthropathy ligamentum flavum hypertrophy and prominent digna ede epidural fat contributes to stenosis. 2. Suggestion of a tiny RIGHT subarticular synovial cyst L3-L4 impinges the RI GHT subarticular recess and traversing RIGHT L4 nerve root. 3. RIGHT foraminal protrusion L3-L4 slightly impinges the exiting RIGHT L3 ner ve root. 4. Shallow LEFT pericentral protrusion L4-L5 impinges the traversing LEFT L5 n erve root with mild central canal stenosis. 5. Shallow central protrusion L5-S1 slightly contacts the traversing S1 nerve roots.
== END 2022-03-10 07:03 | disposition home or self-care (01) ==
LOC: RAD 07:03
PROVIDERS: PCP Nurse Practitioner; Visit Provider Physician Assistant
DX: M48.061 Spinal stenosis, lumbar region without neurogenic claudication (principal); M51.26 Other intervertebral disc displacement, lumbar region; M51.27 Other intervertebral disc displacement, lumbosacral region
CPT/HCPCS: 72148

== ENCOUNTER → 2022-08-17 11:37 | Outpatient (BNVA) | payer MEDICAID, SELFPAY | PROVIDERS: PCP Nurse Practitioner; Visit Provider Nurse Practitioner Family | DX: M79.604 Pain in right leg (principal); N39.0 Urinary tract infection, site not specified; M79.605 Pain in left leg | CPT/HCPCS: 81000 ==

== ENCOUNTER → 2022-08-27 09:01 | Outpatient (BNVA) | payer MEDICAID, SELFPAY | PROVIDERS: PCP Nurse Practitioner; Visit Provider Orthopaedic Surgery | DX: M47.812 Spondylosis without myelopathy or radiculopathy, cervical region (principal) | CPT/HCPCS: 72050 ==

== ENCOUNTER → 2022-09-16 14:49 | Outpatient (BNVA) | payer MEDICAID, SELFPAY | PROVIDERS: PCP Nurse Practitioner; Visit Provider Obstetrics & Gynecology | DX: O23.40 Unspecified infection of urinary tract in pregnancy, unspecified trimester (principal); N39.0 Urinary tract infection, site not specified | CPT/HCPCS: 84315; 87086 ==

== ENCOUNTER 2022-10-01 09:33 | Outpatient (CLI) | payer MEDICAID, SELFPAY ==
--- NOTE | 2022-10-01 09:30 | CT_ITS ---
WS: [id number] CT ABDOMEN AND PELVIS WITH CONTRAST HISTORY: R10.9 - Unspecified abdominal pain TECHNIQUE: Imaging performed of the abdomen and pelvis with IV contrast. Single phase imaging of the abdomen. Coronal and sagittal reformats are submitted. All CT scans at [facility] use at [facility] st one of these dose optimization techniques: automated exposure control; mA and/or kV adjustment per patient size (includes targeted exams where dose is matched to clinical indication); or iterative re construction. IV CONTRAST: Omnipaque 350; 100 mL IV. Oral contrast: No DLP: 602.23 mGy.cm COMPARISON: 02/20/2020 Lower thorax: Lung bases are clear. Heart is normal size. No hiatal hernia. Liver/biliary system: Normal size with no intrahepatic dilatation. Gallbladder: Normal. No gallstones or wall thickening. No pericholecystic fluid. Pancreas: Normal size pancreas and pancreatic duct. No adjacent inflammation. Spleen: Normal size spleen. No mass or infarct. Adrenal glands: Normal. Right kidney: Normal. Left kidney: Normal. Aorta: Normal. Lymphadenopathy: None. Free fluid: None. GI tract: Normally distended stomach. No small bowel obstruction. Normal appendix. Marked fecal reten tion in the LEFT colon especially through the splenic flexure. Colon proximal to the splenic flexure with mild submucosal edema. Transition point at the splenic flexure. Minimal pericolonic inflammation . Abdominal wall: Unremarkable abdominal wall. No hernia. Pelvis: No free fluid or adenopathy within the pelvis. Prior hysterectomy. Ovaries remain present. LE FT ovarian dominant follicle at 2.9 cm. Bones: Unremarkable. CT/CT abdomen pelvis w con* [id number] IMPRESSION: 1. No renal obstruction. 2. Mild submucosal edema involving the RIGHT colon through the transverse flex ure to the splenic flexure. There is marked dilatation of the splenic flexure w ith retained fecal material. The submucosa returns to more normal appearance wi thin the distal colon. Consider infectious and postinflammatory etiologies. If symptoms persist endoscopy may be necessary for further evaluation. 3. Normal appendix.
[2022-10-01] MEDS: iohexol 350 mg/mL 500 mL Btl (per mL) IV (10:16)
== END 2022-10-01 09:34 | disposition home or self-care (01) ==
LOC: RAD 09:40
PROVIDERS: PCP Nurse Practitioner; Visit Provider Obstetrics & Gynecology
DX: R10.9 Unspecified abdominal pain (principal); R60.0 Localized edema; K59.39 Other megacolon; K59.00 Constipation, unspecified
CPT/HCPCS: 74177; Q9967

== ENCOUNTER 2022-12-01 13:44 | Outpatient (CLI) | payer MEDICAID, SELFPAY ==
--- NOTE | 2022-12-07 13:45 | US_ITS ---
WS: [id number] THYROID ULTRASOUND HISTORY: thyroid nodule COMPARISON: None available. Right lobe: 1.3 cm x 1.1 cm x 3.8 cm (w x ap x l). Volume: 2.8 cm3. Small atrophic thyroid. No mass or nodule. No increased vascularity. Left lobe: 1.5 cm x 1.2 cm x 3.4 cm (w x ap x l). Volume: 3.3 cm3. Small atrophic thyroid. No mass or nodule. No increased vascularity. Isthmus: 0.2 cm. US/US thyroid [id number] IMPRESSION: Atrophic thyroid gland. No masses or nodules.
== END 2022-12-01 15:39 | disposition home or self-care (01) ==
LOC: RAD 01-28 16:21
PROVIDERS: PCP Nurse Practitioner; Visit Provider Family Medicine
DX: E03.9 Hypothyroidism, unspecified (principal)
CPT/HCPCS: 76536; 80053; 80061; 84439; 84443; 85025

== ENCOUNTER 2022-12-09 10:02 | Outpatient (CLI) | payer MEDICAID, SELFPAY ==
--- NOTE | 2022-12-09 10:11 | MM_ITS ---
WS: [id number] SCREENING DIGITAL BREAST TOMOSYNTHESIS MAMMOGRAM WITH CAD HISTORY: screening COMPARISON: None available. Bilateral CC and MLO with tomosynthesis and synthetic mammography submitted. Computer aided detection analyzed. Breast composition: The breasts are heterogeneously dense, which may obscure small masses. . Mild asy mmetry and increased density 12:00 axis LEFT breast anterior to mid depth. RIGHT breast is negative. MM/[place] [id number] IMPRESSION: BI-RADS: 0-Incomplete: Need additional imaging evaluation FOLLOW UP: Need Additional Imaging LEFT breast: Spot compression views (CC and MLO). True ML. Ultrasound to follow if abnormality persists.
== END 2022-12-09 10:03 | disposition home or self-care (01) ==
LOC: RAD 10:06 → MOBLMAM 10:10
PROVIDERS: PCP Family Medicine; Visit Provider Family Medicine
DX: Z12.31 Encounter for screening mammogram for malignant neoplasm of breast (principal); N64.89 Other specified disorders of breast
CPT/HCPCS: 77063; 77067

== ENCOUNTER 2022-12-16 09:06 | Outpatient (RCR) | payer MEDICAID, SELFPAY | END 2023-01-14 23:59 | disposition home or self-care (01) | LOC: SPT 09:06 | PROVIDERS: PCP Family Medicine; Visit Provider Internal Medicine Cardiovascular Disease | DX: M54.2 Cervicalgia (principal); G89.29 Other chronic pain; M50.30 Other cervical disc degeneration, unspecified cervical region | CPT/HCPCS: 97110; 97162 ==

== ENCOUNTER 2023-01-11 09:54 | Outpatient (CLI) | payer MEDICAID, SELFPAY ==
--- NOTE | 2023-01-11 10:01 | MM_ITS ---
WS: [id number] ADDITIONAL VIEWS LEFT MAMMOGRAM with tomosynthesis. LEFT BREAST ULTRASOUND HISTORY: ABNORMAL MAMMO COMPARISON: 12/09/2022 LEFT MAMMOGRAM: Spot compression views and true ML with tomosynthesis and sympathetic mammography. Focal asymmetry near 12:00 nearly completely resolves with additional imaging. There is less architec tural distortion. There is still dense fibroglandular tissue. Ultrasound to follow. LEFT BREAST ULTRASOUND 2-D and color Doppler imaging submitted. No mass identified in the LEFT breast near the 12:00 axis. Ultrasound is also performed in the upper outer and upper inner quadrants of the LEFT breast. IMPRESSION: MM/[place] [id number] BI-RADS: 2-Benign FOLLOW UP: 1 Year Follow-up
== END 2023-01-11 09:55 | disposition home or self-care (01) ==
PROVIDERS: PCP Family Medicine; Visit Provider Family Medicine
DX: R92.8 Other abnormal and inconclusive findings on diagnostic imaging of breast (principal)
CPT/HCPCS: 76642; 77061; G0279

== ENCOUNTER 2023-03-13 17:48 | Emergency (ER) | payer MEDICAID, SELFPAY ==
[2023-03-13 17:58] VITALS: BP 122/69; PULSE 79; RESP 18; TEMP 36.7; O2SAT 96; BMI 35.7
--- NOTE | 2023-03-13 17:59 | W.ED.BACK ---
HPI - Back Pain/Injury General: Chief Complaint: Back Pain/Injury Stated Complaint: back pain Time Seen by Provider: 03/13/23 17:58 History of Present Illness: 47-year-old female comes in today with low back pain. Patient has a history of chronic back problems. Patient was seen at urgent care and was given a dose of steroids and prescriptions for pain. Patient was told to go to the ER for further pain relief. Patient appears in moderate pain. Patient appears nontoxic. Patient denies any loss of bowel or bladder control. Review of Systems General: Reports: 10 or more systems reviewed and unremarkable except in HPI and below Musc: Reports: back pain PFSH ED PFSH: Medical History Chronic cystitis Fatty liver disease, nonalcoholic Hypothyroid Left groin pain Lupus Hx of positive serology? Skin rash Stress incontinence Surgical History S/P endometrial ablation S/P laparoscopic assisted vaginal hysterectomy (LAVH) Due to bleeding. Performed in [place] approximately 17 years ago. Still has ovaries. Family History Family/Other Cervical cancer Maternal Other CAD (coronary artery disease) Cancer Multiple sclerosis No pertinent family history in first degree relatives Psychiatric illness Rheumatoid arthritis Denies family history of Diabetes Lupus Chronic kidney disease (CKD) Anesthesia complication Bleeding disorder Lung disease Hypertension Stroke Social History Smoking and tobacco/nicotine status: never used tobacco/nicotine Second hand smoke exposure: No Alcohol intake: never Substance/Drug Use: never Lives independently: Yes Marital status: Number of children: 4 Current occupational status: unemployed Radha/Congregation: [employer] [facility] Special radha needs: No Agree to transfusion: Yes Physical Exam Const: COMMON NORMALS: alert HENMT: COMMON NORMALS: normocephalic HEAD & SCALP: normocephalic Neck/C-Spine: COMMON NORMALS: full ROM Resp: COMMON NORMALS: normal respiratory effort Cardio: COMMON NORMALS: regular rate RATE: regular rate Back/Pelvis: LUMBAR SPINE/LOWER BACK: No lumbar spinal tenderness and Yes paraspinal muscle tenderness Neuro: SENSORIUM/ORIENTATION: Yes alert Skin: COMMON NORMALS: turgor normal GENERAL SKIN EXAM: turgor normal Course Vital Signs: Vital signs: Vital Signs Temperature 98.1 F 03/13/23 18:08 Pulse Rate 79 03/13/23 18:08 Respiratory Rate 18 03/13/23 18:08 Blood Pressure 122/69 03/13/23 18:08 Pulse Oximetry 96 03/13/23 18:08 Oxygen Delivery Me thod Room Air 03/13/23 17:58 MDM - Back Pain/Injury Medical Decision Making 47-year-old female comes in today for complaints of back pain. Patient had gone to urgent care for an injection of Toradol but they did not have any medication available and she was referred to the ER. Patient reports that she was given an injection of steroids. On exam patient has muscle tenderness to bilateral paraspinous muscles of the lower back. Patient is able to ambulate. Patient appears nontoxic. Differential diagnosis includes but not limited to lumbar radiculopathy, muscle strain, facet arthropathy, intervertebral disc disease. Patient was given a dose of Toradol in the ER and 1 hydrocodone tablet. Patient will continue with prescribed medications from urgent care for further treatment. Patient was recommended to follow-up with primary care for further instructions or return to the ER for worsening symptoms. No radiology studies performed this visit Discharge Plan Discharge Patient Disposition: Home Clinical Impression: DDD (degenerative disc disease), lumbosacral, Low back pain radiating to both legs Condition: Stable Prescriptions: No Action cholecalciferol (vitamin D3) 10 mcg (400 unit) capsule 10 mcg PO DAILY mecobalamin (vitamin B12) 5,000 mcg tablet,disintegrating PO vitamin E mixed 400 unit capsule PO Digestive Advantage Prob Gummy 250 million cell tablet,chewable PO meloxicam 15 mg tablet 15 mg PO DAILY PRN (Reason: pain) Qty: 30 0RF trazodone 50 mg tablet 25 mg PO DAILY Qty: 30 0RF prednisone 20 mg tablet 40 mg PO DAILY 5 Days Qty: 10 0RF tramadol 50 mg tablet 50 mg PO BID PRN (Reason: pain) Qty: 15 0RF escitalopram oxalate 5 mg tablet 5 mg PO DAILY ondansetron 4 mg tablet,disintegrating 4 mg PO Q8H PRN (Reason: nausea and vomiting) Qty: 30 0RF levothyroxine 100 mcg capsule 100 mcg PO DAILY Qty: 90 1RF atorvastatin [Lipitor] 20 mg tablet 20 mg PO DAILY Qty: 90 1RF Discharge Orders: Discharge ED (Routine); Ordered 03/13/23 Ordered By: Teo Love Referrals: Garret Evans MD [Primary Care Provider] - Discharge Diet: Usual diet Discharge Activity: Increase activity as tolerated Patient Instructions: Back Pain (ED), Opioid Safety Activity Restrictions/Additional Instructions: Activity as tolerated. Take medications as directed. Gentle stretching and range of motion exercises. Drink plenty of water and fluids. Follow-up with primary care for further instruction. Coding Level of Care Code ED [employer] for [employer] Coker
[2023-03-13 18:08] VITALS: BP 122/69; PULSE 79; RESP 18; TEMP 36.7; O2SAT 96
[2023-03-13] MEDS: ketorolac 60 mg/2 mL INJ IM (18:12)
[2023-03-13] MEDS: HYDROcodone-acetaminophen 10-325 mg Tablet 1 TAB PO (18:12)
== END 2023-03-13 18:15 | disposition home or self-care (01) ==
PROVIDERS: Emergency Provider Nurse Practitioner Family; PCP Family Medicine
DX: M51.37 Other intervertebral disc degeneration, lumbosacral region (principal); M32.9 Systemic lupus erythematosus, unspecified
CPT/HCPCS: 96372; 99284; J1100; J1885

== ENCOUNTER → 2023-03-30 14:54 | Outpatient (BNVA) | payer MEDICAID, SELFPAY | PROVIDERS: Referring Provider Family Medicine; Visit Provider Orthopaedic Surgery | DX: M47.816 Spondylosis without myelopathy or radiculopathy, lumbar region; M47.817 Spondylosis without myelopathy or radiculopathy, lumbosacral region; G89.29 Other chronic pain | CPT/HCPCS: 72100 ==

== ENCOUNTER 2023-04-13 06:00 | Outpatient (RCR) | payer MEDICAID, SELFPAY | END 2023-04-15 23:59 | disposition home or self-care (01) | LOC: SPT 06:00 | PROVIDERS: PCP Family Medicine; Visit Provider Family Medicine | DX: M54.2 Cervicalgia (principal); G89.29 Other chronic pain | CPT/HCPCS: 97110; 97162 ==

== ENCOUNTER 2023-04-13 13:51 | Outpatient (CLI) | payer MEDICAID, SELFPAY ==
[2023-04-13 14:13] LABS: Basophils % 0.5 %; Eosinophils # 0.1 10^3/uL (0.0-0.8); Eosinophils % 0.6 %; Hematocrit 43.2 % (36-47); Lymphocytes # 2.5 10^3/uL (0.8-4.8); Lymphocytes % 32.2 %; Mean Corpuscular HGB Conc 33.8 g/dL (30-55); Mean Corpuscular Hemoglobin 31.9 pg (27-33); Mean Corpuscular Volume 94.5 fl (85-98); Monocytes # 0.7 10^3/uL (0.2-0.9); Monocytes % 9.1 %; Neutrophils # 4.43 10^3/uL (1.8-7.7); Neutrophils % 57.3 %; Nucleated Red Blood Cells % 0 %; Platelet Count 309 10^3/cmm (157-399); Red Blood Count 4.57 10^6/uL (3.85-5.65); White Blood Count 7.73 10^3/uL (3.29-11.43)
[2023-04-13 14:31] LABS: Alanine Aminotransferase 31 U/L (0-33); Albumin Level 4.7 g/dL (3.5-5.2); Alkaline Phosphatase 91 U/L (35-105); Anion Gap 17.1 (5-19); Aspartate Amino Transferase 25 U/L (0-32); Blood Urea Nitrogen 10 mg/dL (6-20); Calcium 9.5 mg/dL (8.5-10.5); Carbon Dioxide 21 mmol/L (22-29); Chloride 107 mmol/L (98-107); Globulin 2.6 g/dL (1.3-4.6); Glomerular Filtration Rate 76.6 mL/min (90-130); Glucose 114 mg/dL (65-115); Osmolality Calculated 292 mOsm/kg (285-295); Potassium 4.1 mmol/L (3.5-5.1); Sodium 141 mmol/L (136-145); Total Bilirubin 0.4 mg/dL (0.15-1.2); Total Protein 7.3 g/dL (6.6-8.7)
[2023-04-13 14:38] LABS: Add Urine Microscopic? YES; Bilirubin Urine Neg (Negative); Blood Urine 2+ (Negative); Glucose Urine UA Norm (Normal); Ketones Urine Negative (Negative); Leukocyte Esterase Urine Negative (Negative); Nitrate Urine Negative (Negative); Protein Urine Neg (Negative); Urine Appearance Cloudy (CLEAR); Urine Color Light yellow (Yellow); Urobilinogen Urine Norm (Negative); pH Urine 5 (5-7)
[2023-04-13 14:43] LABS: Bacteria Urine 2+ /hpf; Mucus Urine 1+ /hpf; RBC Urine 0-4 /hpf (0-2); Transitional Epi Cells Urine 0-4 /hpf; WBC Urine 0-4 /hpf (0-5)
[2023-04-13 14:44] LABS: Add Urine Culture? Yes
== END 2023-04-13 13:52 | disposition home or self-care (01) ==
LOC: LAB 13:51
PROVIDERS: PCP Family Medicine; Visit Provider Orthopaedic Surgery
DX: M48.062 Spinal stenosis, lumbar region with neurogenic claudication (principal)
CPT/HCPCS: 36415; 80053; 81001; 85025; 87086

== ENCOUNTER 2023-05-26 10:22 | Day surgery (SDC) | payer MEDICAID, SELFPAY ==
[2023-05-26] VITALS (16 sets, daily range): BP systolic 100–155; BP diastolic 63–88; PULSE 76–94; RESP 16–19; TEMP 36.3–36.8; O2SAT 87–99; BMI 34.2
--- NOTE | 2023-05-26 | XR_ITS ---
WS: [id number] XR lumbar spine 1V [id number] REASON FOR EXAM: Left-sided L3-4, L4-5, L5-S1 decompression, OR Pic FINDINGS: Intraoperative images of the lumbar spine. Surgical instrument is demonstrated overlying the left lateral aspect of the interspace at L5-S1, L4- L5, and L3-L4 in sequence. IMPRESSION: Intraoperative lumbar localization as above.
[2023-05-26] MEDS: sodium chloride 0.9% 1,000 ML 30 ML IV (11:09)
--- NOTE | 2023-05-26 12:50 | P.HP_ITS ---
Same Day Surgery H&P Indication for Procedure/HPI DATE OF PROCEDURE: May 26, 2023 CHIEF COMPLAINT/INDICATIONFOR SURGICAL PROCEDURE: Low back and left leg pain PREOP DIAGNOSIS: lumbar stenosis with neurogenic claudication PLANNED PROCEDURE: Operation Date: 05/26/23 12:00 Proposed Procedures p Minimal Invasive Left Side Lumbar Spine Decompression(L3/4,L4/5,L5/S1)(Left) - Aftab Webb DO s MicroDiscectomy Lumbar Discectomy(L5/S1)(Not Applicable) - Aftab Webb DO Medications/Allergies* Home Medications Medication Instructions Recorded Confirmed Type escitalopram oxalate 5 mg tablet 5 mg PO DAILY 04/27/22 05/25/23 History mecobalamin (vitamin B12) 5,000 5,000 mcg PO DAILY 12/01/22 05/26/23 History mcg disintegrating tablet Allergies/Adverse Reactions Allergy/AdvReac Type Severity Reaction Status Date / Time No Known Allergies Allergy Verified 05/26/23 10:51 Current Medications: Generic Name Dose Route Start Last Admin Trade Name Freq PRN Reason Stop Dose Admin Sodium Chloride 1,000 mls @ 30 mls/hr 05/26/23 10:45 05/26/23 11:09 Sodium Chloride 0.9% IV 05/27/23 10:44 30 mls/hr .Q24H CARISSA Administration Pertinent History/Comorbid Conditions* Medical History (Updated 03/30/23 @ 15:44 by Aftab Webb DO) Fatty liver disease, nonalcoholic Left groin pain Skin rash Stress incontinence Chronic cystitis Hypothyroid Lupus Hx of positive serology? Surgical History (Updated 12/01/22 @ 08:30 by Garret Evans MD) S/P laparoscopic assisted vaginal hysterectomy (LAVH) Due to bleeding. Performed in [place] approximately 17 years ago. Still has ovaries. S/P endometrial ablation Family History (Updated 12/01/22 @ 08:18 by Cely Sosa LPN) Rheumatoid arthritis Cervical cancer Family/Other Maternal No pertinent family history in first degree relatives CAD (coronary artery disease) Psychiatric illness Multiple sclerosis Cancer Denies family history of Diabetes Lupus Chronic kidney disease (CKD) Anesthesia complication Bleeding disorder Lung disease Hypertension Stroke Social History Smoking and tobacco/nicotine status: never used tobacco/nicotine Second hand smoke exposure: No Alcohol intake: never Substance/Drug Use: never Lives independently: Yes Marital status: Number of children: 4 Current occupational status: unemployed Radha/Gnosticism: Muslim [facility] Special radha needs: No Agree to transfusion: Yes Pertinent Exam Findings alert and oriented x 3 Recommendations Surgery/Procedure today Coding Level of Care Code Acute Code for Chg Fwd
--- NOTE | 2023-05-26 12:52 | ANES.PREANE2 ---
Pre-Anesthetic Assessment Height/Weight: Height 1.65 m Weight 93.44 kg O2 Del Method Room Air 05/26/23 10:56 Preop Diagnosis: lumbar stenosis with neurogenic claudication Operation Date: 05/26/23 12:00 Proposed Procedures p Minimal Invasive Left Side Lumbar Spine Decompression(L3/4,L4/5,L5/S1)(Left) - Aftab Webb DO s MicroDiscectomy Lumbar Discectomy(L5/S1)(Not Applicable) - Aftab H Tracey DO Was Beta Jamal taken within 24 hours: N/A Was Clonidine taken within 24 hours: N/A Last intake: Intake Last Liquid Date 05/25/23 Last Liquid Time 21:00 Last Solid Date 05/25/23 Last Solid Time 21:00 Social No tobacco Exam alert and oriented x 3 Airway Submandibular: within normal limits Cervical ROM: within normal limits Mallampati: Class II History/ROS No significant history except as noted and No significant complaints Metabolic Hyperlipidemia and Thyroid Disease Neuropsych Depression Anesthetic Plan ASA status: 2 Anesthesia: General Risk of > 500 ml blood loss (7ml/kg in children): No Medications/Allergies Home Medications Medication Instructions Recorded Confirmed Last Taken Type escitalopram oxalate 5 mg tablet 5 mg PO DAILY 04/27/22 05/25/23 05/25/23 History mecobalamin (vitamin B12) 5,000 5,000 mcg PO DAILY 12/01/22 05/26/23 1 Day Ago History mcg disintegrating tablet ~05/24/23 atorvastatin 20 mg tablet (Lipitor) 20 mg PO DAILY #90 tabs 12/02/22 05/25/23 05/25/23 Rx levothyroxine 100 mcg capsule 100 mcg PO DAILY #90 caps 12/02/22 05/25/23 05/26/23 Rx Allergies Allergy/AdvReac Type Severity Reaction Status Date / Time No Known Allergies Allergy Verified 05/26/23 10:51 Current Medications Generic Name Dose Route Start Last Admin Trade Name Freq PRN Reason Stop Dose Admin Sodium Chloride 1,000 mls @ 30 mls/hr 05/26/23 10:45 05/26/23 11:09 Sodium Chloride 0.9% IV 05/27/23 10:44 30 mls/hr .Q24H CARISSA Administration PFSH Anesthesia Medical History Fatty liver disease, nonalcoholic Left groin pain Skin rash Stress incontinence Chronic cystitis Hypothyroid Lupus Hx of positive serology? Surgical History S/P laparoscopic assisted vaginal hysterectomy (LAVH) Due to bleeding. Performed in [place] approximately 17 years ago. Still has ovaries. S/P endometrial ablation Family History Family/Other Cervical cancer Maternal Other CAD (coronary artery disease) Cancer Multiple sclerosis No pertinent family history in first degree relatives Psychiatric illness Rheumatoid arthritis Denies family history of Diabetes Lupus Chronic kidney disease (CKD) Anesthesia complication Bleeding disorder Lung disease Hypertension Stroke Social History Smoking and tobacco/nicotine status: never used tobacco/nicotine Second hand smoke exposure: No Alcohol intake: never Substance/Drug Use: never Lives independently: Yes Marital status: Number of children: 4 Current occupational status: unemployed Radha/Protestant: [facility] Special radha needs: No Agree to transfusion: Yes Data Anesthesia Cardiac Studies: No Data to Display
[2023-05-26] MEDS: ceFAZolin 2,000 MG in sodium chloride 0.9% (plus) 50 ML 100 MG IV (13:17)
[2023-05-26] MEDS: lidocaine-epi 2% 20 mL INJ INJECTION (13:47)
--- NOTE | 2023-05-26 15:36 | P.OP_ITS ---
Operative Report Date of procedure: May 26, 2023 Pre-op diagnosis: Lumbar stenosis with neurogenic claudication Post-op diagnosis: same Procedure done: 1. L3-4 laminectomy with partial facetectomy 2. L4-5 laminectomy and partial facetectomy 3. L5-S1 laminectomy with partial facetectomy Surgeon: Aftab Webb DO Estimated blood loss (mL): 10 Procedure: 1. L3-4 laminectomy with partial facetectomy 2. L4-5 laminectomy and partial facetectomy 3. L5-S1 laminectomy with partial facetectomy Patient is brought to the operative suite. After undergoing anesthesia they are placed in the prone position. All areas of impingement are well padded. Patient is then prepped and draped in the normal sterile fashion. A skin incision is made over the L3/4 level. This is confirmed under c-arm guidance. A series of dilators are passed and the tubular retractor is docked on the L3 lamina. A bovie is used to clear the soft tissue off the lamina and the L 3/4 facet joint. A high speed magda is then used to perform the laminectomy and take down the medial aspect of the L 3/4 facet joint. A kerrison rongeure was then used to take down the remaining lamina and smooth the edge of the laminectomy up to the point where the ligamentum flavum attaches. Attention was then brought to the medial aspect of the facet joint. The remaining medial aspect of the superior and inferior aspect of the facet joint were taken down with the kerrison from the pedicle of L3 to L 4. The facet join t had significant hypertrophy. Attention was then brought to the Ligamentum Flavum. The ligament was taken down from the lamina of L3 to L4 and out medially to the remaining facet joint. The ligament was thick. The dura was then exposed. The dura was in good repair. The L3 nerve was then traced with a curette out the L3/4 foramen and found to be adequately decompressed. The L4 nerve was traced with a curette around the L4 pedicle. The lateral recess was opened with a kerrison helping to further decompress the L4 nerve. Wound is then irrigated copiously with saline and surgiflo is used to stop any bleeding. The tubular retractor is removed and the A skin incision is made over the L4/5 level. This is confirmed under c-arm guidance. A series of dilators are passed and the tubular retractor is docked on the L4 lamina. A bovie is used to clear the soft tissue off the lamina and the L 4/5 facet joint. A high speed magda is then used to perform the laminectomy and take down the medial aspect of the L 4/5 facet joint. A kerrison rongeure was then used to take down the remaining lamina and smooth the edge of the laminectomy up to the point where the ligamentum flavum attaches. Attention was then brought to the medial aspect of the facet joint. The remaining medial aspect of the superior and inferior aspect of the facet joint were taken down with the kerrison from the pedicle of L4 to L 5. The facet joint had significant hypertrophy. Attention was then brought to the Ligamentum Flavum. The ligament was taken down from the lamina of L4 to L5 and out medially to the remaining facet joint. The ligament was thick. The dura was then exposed. The dura was in good repair. The L4 nerve was then traced with a curette out the L4/5 foramen and found to be adequately decompressed. The L5 nerve was traced with a curette around the L5 pedicle. The lateral recess was opened with a kerrison helping to further decompress the L5 nerve. Wound is then irrigated copiously with saline and surgiflo is used to stop any bleeding. The tubular retractor is removed and the A skin incision is made over the L5/S1 level. This is confirmed under c-arm guidance. A series of dilators are passed and the tubular retractor is docked on the L5 lamina. A bovie is used to clear the soft tissue off the lamina and the L 5/S1 facet joint. A high speed magda is then used to perform the laminectomy and take down the medial aspect of the L 5/S1 facet joint. A kerrison rongeure was then used to take down the remaining lamina and smooth the edge of the laminectomy up to the point where the ligamentum flavum attaches. Attention was then brought to the medial aspect of the facet joint. The remaining medial aspect of the superior and inferior aspect of the facet joint were taken down with the kerrison from the pedicle of L5 to S1. The facet joint had significant hypertrophy. Attention was then brought to the Ligamentum Flavum. The ligament was taken down from the lamina of L5 to S1 and out medially to the remaining facet joint. The ligament was thick. The dura was then exposed. The dura was in good repair. The L5 nerve was then traced with a curette out the L5/S1 foramen and found to be adequately decompressed. The S1 nerve was traced with a curette around the S1 pedicle. The lateral recess was opened with a kerrison helping to further decompress the S1 nerve. Wound is then irrigated copiously with saline and surgiflo is used to stop any bleeding. The tubular retractor is removed and thewound is closed with vicryl and monocryl suture. Glue is then used to protect the wound. A sterile dressing is then placed. Patient was then placed in the supine position and transferred to the PACU in stable condition.
[2023-05-26] MEDS: fentaNYL 50 mcg/mL INJ 2mL IVP (15:56)
[2023-05-26] MEDS: HYDROcodone-acetaminophen 5-325 mg Tablet 1 TAB PO (16:51)
--- NOTE | 2023-05-26 17:28 | PC.NURSE ---
IV in right hand present upon arrival to post-op not documented. DC prior to discharge, catheter intact, pt tolerated well.
--- NOTE | 2023-05-26 19:29 | ANE.PACU2 ---
Inpatient post-anesthesia follow up: Airway intact: Yes Vital signs: Temperature 97.4 F Pulse Rate 89 Respiratory Rate 16 Blood Pressure 118/63 Pulse Oximetry 94 Oxygen Delivery Me thod Room Air Oxygen Flow Rate 9 Fraction of Inspir ed Oxygen Hydration adequate: Yes Nausea and vomiting: No Pain level: 3 Mental status: Baseline
== END 2023-05-26 17:45 | disposition home or self-care (01) ==
PROVIDERS: PCP Family Medicine; Visit Provider Orthopaedic Surgery
PROC: (CPT 63005; principal; 2023-05-26 11:50)
PROC: (CPT 63047; 2023-05-26 11:50)
DX: M48.062 Spinal stenosis, lumbar region with neurogenic claudication (principal); E78.5 Hyperlipidemia, unspecified; E03.9 Hypothyroidism, unspecified
CPT/HCPCS: 63047; 63048 ×2; 72020; 76000; J0690; J1100; J1200; J2250; J2405; J2704; J2710; J3010; J3490; J7030

== ENCOUNTER → 2023-05-27 09:38 | Outpatient (BNVA) | payer MEDICAID, SELFPAY | PROVIDERS: PCP Family Medicine; Visit Provider Nurse Practitioner Family | DX: R32 Unspecified urinary incontinence (principal); N39.0 Urinary tract infection, site not specified | CPT/HCPCS: 81000; 87086 ==

== ENCOUNTER 2023-05-28 08:42 | Emergency (ER) | payer MEDICAID, SELFPAY ==
[2023-05-28 08:55] VITALS: BP 142/84; PULSE 86; RESP 15; TEMP 36.7; O2SAT 95
[2023-05-28 09:18] VITALS: RESP 17; O2SAT 96
[2023-05-28] MEDS: HYDROmorphone 1 mg/mL INJ 1 mL IM (09:18)
--- NOTE | 2023-05-28 09:22 | W.ED.BACK ---
HPI - Back Pain/Injury General: Chief Complaint: Back Pain/Injury Stated Complaint: lower extremity pain Time Seen by Provider: 05/28/23 08:51 Source: patient Mode of arrival: ambulatory Limitations: no limitations History of Present Illness: 47-year-old female who had lower lumbar decompression surgery 2 days ago states been having low back pain since then. She states she has pain shooting down both legs. Denies any bowel or bladder incontinence. She was seen yesterday started on antibiotics for possible UTI. She denies any fever denies any vomiting or diarrhea Associated symptoms: Deny abdominal pain, chills, fever(s), nausea or vomiting Review of Systems Const: Denies: fever(s), chills, body aches or change in appetite Eyes: Denies: blurry vision or eye discomfort ENMT: Denies: throat pain or dental pain Card: Denies: chest pain Resp: Denies: dyspnea GI: Denies: abdominal pain, nausea, vomiting or diarrhea Musc: Reports: back pain; Denies: neck pain Skin/Breast: Denies: rash Neuro: Denies: headache(s) PFSH ED PFSH: Medical History Fatty liver disease, nonalcoholic Left groin pain Skin rash Stress incontinence Chronic cystitis Hypothyroid Lupus Hx of positive serology? Surgical History S/P laparoscopic assisted vaginal hysterectomy (LAVH) Due to bleeding. Performed in [place] approximately 17 years ago. Still has ovaries. S/P endometrial ablation Family History Family/Other Cervical cancer Maternal Other CAD (coronary artery disease) Cancer Multiple sclerosis No pertinent family history in first degree relatives Psychiatric illness Rheumatoid arthritis Denies family history of Diabetes Lupus Chronic kidney disease (CKD) Anesthesia complication Bleeding disorder Lung disease Hypertension Stroke Social History Smoking and tobacco/nicotine status: never used tobacco/nicotine Second hand smoke exposure: No Alcohol intake: never Substance/Drug Use: never Lives independently: Yes Marital status: Number of children: 4 Current occupational status: unemployed Radha/Worship: Gnosticism [facility] Special radha needs: No Agree to transfusion: Yes Physical Exam Const: COMMON NORMALS: no acute distress, patient oriented x3 and healthy appearing HENMT: COMMON NORMALS: normocephalic and atraumatic HEAD & SCALP: normocephalic and atraumatic Eye: COMMON NORMALS: Equal, round and reactive pupils present and EOMs intact bilaterally PUPIL: Yes Equal, round and reactive pupils present Neck/C-Spine: COMMON NORMALS: full ROM and supple Chest: COMMONS NORMALS: normal inspection of the chest and normal palpation of entire chest wall Resp: COMMON NORMALS: normal respiratory effort, No retractions, No use of accessory muscles and clear to auscultation bilaterally AUSCULTATION: clear to auscultation bilaterally Cardio: COMMON NORMALS: regular rate, regular rhythm and No murmurs present (Cardio) RATE: regular rate RHYTHM: regular rhythm GI: COMMON NORMALS: Normal to inspection, nondistended, normoactive bowel sounds present, Soft to palpation, non-tender and no masses PALPATION: Yes Soft to palpation Extremity: COMMON NORMALS: normal to inspection and full ROM Neuro: COMMON NORMALS: patient oriented x3, moves all extremities and no focal motor deficits Psych: COMMON NORMALS: mental status grossly normal, Normal thought process present and cooperative THOUGHT PROCESS: Normal thought process present Skin: COMMON NORMALS: no rashes or lesions noted and no wounds GENERAL SKIN EXAM: no rashes or lesions noted Course Vital Signs: Vital signs: Vital Signs Temperature 98.1 F 05/28/23 08:55 Pulse Rate 86 05/28/23 08:55 Respiratory Rate 17 05/28/23 09:18 Blood Pressure 142/84 05/28/23 08:55 Pulse Oximetry 96 05/28/23 09:18 Oxygen Delivery Me thod Room Air 05/28/23 08:55 MDM - Back Pain/Injury Medical Decision Making Patient presents with back pains postop pain incision here is clean dry and intact her exam is benign she has no signs of cord compression her pain is improved here she is to follow-up with her surgeon Dr. Webb next week return if worsening she understands agrees to plan Medical Records I reviewed the patient's medical records. No radiology studies performed this visit Discharge Plan Discharge Patient Disposition: Home Clinical Impression: Post-op pain Condition: Stable Prescriptions: No Action mecobalamin (vitamin B12) 5,000 mcg tablet,disintegrating 5,000 mcg PO DAILY ondansetron 8 mg tablet,disintegrating 8 mg PO Q12H PRN (Reason: nausea and vomiting) Qty: 7 0RF amoxicillin-pot clavulanate 875-125 mg tablet 1 tab PO BID 7 Days Qty: 14 0RF levothyroxine 100 mcg capsule 100 mcg PO DAILY Qty: 90 1RF atorvastatin [Lipitor] 20 mg tablet 20 mg PO DAILY Qty: 90 1RF Advil 200 mg Tablet 800 mg PO Q6H PRN (Reason: Pain) Lexapro 10 mg tablet 10 mg PO DAILY vitamin E (dl, acetate) 180 mg (400 unit) Capsule 180 mg PO DAILY Vitamin D3 125 mcg (5,000 unit) Tablet 125 mcg PO DAILY hydrocodone-acetaminophen 5-325 mg tablet 1 - 2 tab PO .Q4-6H Qty: 40 0RF Discharge Orders: Discharge ED (Routine); Ordered 05/28/23 Ordered By: Yohannes Temple Referrals: Aftab Webb DO [Physician] - 1-3 days Garret Evans MD [Primary Care Provider] - Discharge Diet: Advance as tolerated Discharge Activity: Resume usual activity Patient Instructions: Acute Low Back Pain (ED) Coding Level of Care Code ED [employer] Operator Helper for Abeba Coker
[2023-05-28] MEDS: HYDROcodone-acetaminophen 5-325 mg Tablet 1 TAB PO (09:46)
[2023-05-28] MEDS: dexamethasone 10 mg/mL INJ IM (09:46)
[2023-05-28] MEDS: ondansetron 2 mg/ML SDV 2 mL 4 MG IM (10:01)
[2023-05-28 10:04] VITALS: BP 129/78; PULSE 81; O2SAT 96
== END 2023-05-28 10:08 | disposition home or self-care (01) ==
PROVIDERS: Emergency Provider Emergency Medicine; PCP Family Medicine
DX: G89.18 Other acute postprocedural pain (principal)
CPT/HCPCS: 96372; 99284; J1100; J1170; J2405

== ENCOUNTER → 2023-06-03 15:36 | Outpatient (BNVA) | payer MEDICAID, SELFPAY | PROVIDERS: PCP Family Medicine; Visit Provider Family Medicine | DX: E03.9 Hypothyroidism, unspecified (principal) | CPT/HCPCS: 84439; 84443 ==

== ENCOUNTER 2023-08-04 16:27 | Outpatient (CLI) | payer MEDICAID, SELFPAY ==
--- NOTE | 2023-08-04 16:44 | XR_ITS ---
WS: [id number] Both hips, 2 views, AP pelvis, 08/04/2023 Clinical Data: POLYARTHRALGIA, MYALGIA, OTHER FATIGUE Comparison: None. Findings: Right hip: There are no fractures or dislocations. The right hip shows no erosion, sclerosis, narrowing or fragm entation of the right femoral head. Left hip: There are no fractures or dislocations. The left hip shows no erosion, sclerosis, narrowing or fragmentation of the left femoral head. AP pelvis: The hips are normal. The pubic symphysis and SI joints show no abnormalities. The pelvis shows no fra ctures. The soft tissues are normal. Impression: Negative pelvis and hips.
--- NOTE | 2023-08-04 16:45 | MR_ITS ---
WS: [id number] MRI LUMBAR SPINE NONCONTRAST TECHNIQUE: Sagittal T1, T2 and STIR imaging. Axial T1 and T2 imaging. CLINICAL INFORMATION: back Pian COMPARISON: MRI 03/10/2022 FINDINGS: Mild lumbar curve. No acute compression. Disc bulging worse at L3-L5. Disc bulges appear progressed c ompared to 03/10/2022. L1-L2: Mild facet arthropathy. Spinal canal and foramina are patent. L2-L3: Mild disc bulging with narrowing RIGHT subarticular recess. Mild facet arthropathy. Spinal can al and foramen are patent. L3-L4: Small RIGHT paracentral protrusion. This is progressed compared to previous. Mild to moderate narrowing of the thecal sac. Moderate facet arthropathy with ligamentum flavum hypertrophy. LEFT kenisha laminectomy. Foramen are patent. L4-L5: Interval LEFT hemilaminectomy. Central disc bulge with impingement of the LEFT subarticular re cess and traversing LEFT L5 nerve root. This is progressed compared to previous. Mild central canal s tenosis. Mild facet arthropathy. Foramen are patent. L5-S1: LEFT hemilaminectomy. Mild disc bulge with a shallow central protrusion. Slight impingement tr aversing S1 nerve roots bilaterally appears slightly progressed compared to previous. Mild central ca nal stenosis. Mild facet arthropathy. Foramina are patent. Visualized pelvic bony structures: Normal. Paravertebral soft tissues: Normal. Shallow disc protrusions in the cervical spine on the field scout imaging. IMPRESSION: 1. Interval hemilaminectomies LEFT L3, LEFT L4, and LEFT L5. 2. Central disc protrusions at L3-L4 L4-L5 and L5-S1 have progressed compared to previous 3. Mild to moderate central canal stenosis L3-4 with a RIGHT paracentral protrusion new compared to previous. 4. Central disc protrusion L4-5 appears slightly progressed with impingement of traversing L5 nerve roots and mild central canal stenosis. 5. Central disc protrusion L5-S1 appears slightly progressed with impingement of traversing S1 nerve roots. 6. Mild annular bulge L2-3 with narrowing of the RIGHT subarticular recess is new compared to previo us. 7. Moderate facet arthropathy L3-4 with small facet effusions.
== END 2023-08-04 16:28 | disposition home or self-care (01) ==
LOC: RAD 16:27
PROVIDERS: PCP Family Medicine; Visit Provider Orthopaedic Surgery
DX: M48.062 Spinal stenosis, lumbar region with neurogenic claudication (principal); M25.50 Pain in unspecified joint; R53.83 Other fatigue; Z98.890 Other specified postprocedural states; M51.27 Other intervertebral disc displacement, lumbosacral region; M48.07 Spinal stenosis, lumbosacral region; M51.36 Other intervertebral disc degeneration, lumbar region; M47.816 Spondylosis without myelopathy or radiculopathy, lumbar region; M25.48 Effusion, other site; M79.10 Myalgia, unspecified site
CPT/HCPCS: 72148; 73523

== ENCOUNTER → 2023-11-09 11:31 | Outpatient (BNVA) | payer MEDICAID, SELFPAY | PROVIDERS: PCP Family Medicine; Visit Provider Orthopaedic Surgery | DX: M48.062 Spinal stenosis, lumbar region with neurogenic claudication (principal); M71.38 Other bursal cyst, other site; M54.50 Low back pain, unspecified; G89.29 Other chronic pain; M51.26 Other intervertebral disc displacement, lumbar region; M51.27 Other intervertebral disc displacement, lumbosacral region; M54.16 Radiculopathy, lumbar region; M79.604 Pain in right leg; M79.605 Pain in left leg | CPT/HCPCS: 36415; 80053; 85025 ==

== ENCOUNTER 2023-11-16 01:25 | Emergency (ER) | payer MEDICAID, SELFPAY ==
[2023-11-16 01:47] VITALS: BP 155/99; PULSE 88; RESP 18; TEMP 36.7; O2SAT 92; BMI 33.3
--- NOTE | 2023-11-16 02:02 | ED_ITS ---
HPI - General Adult 2 General: Chief complaint: General Medical Stated complaint: Pain in Spine\Pulsating in Ears Time Seen by Provider: 11/16/23 01:46 Source: patient Mode of arrival: ambulatory Limitations: no limitations History of Present Illness: 48-year-old female states that she is la nati in bed woke up and states that she fell like she could hear her heart beating in her ears. She states she just felt like she had a pulsing sensation in bilateral ears and head she states that when she stood up that her symptoms have resolved she states she is also had some abdominal pain though. She has been having epigastric pain for weeks and concerned it may be ulcer she has history of back issues and actually scheduled for back surgery with spine surgeon in 2 weeks. She denies any severe headache she denies any shortness of breath or vomiting or diarrhea Associated symptoms: Deny chest pain, dyspnea, nausea, rash or vomiting Review of Systems 2 Const: Denies: fever(s), chills, body aches or change in appetite ENMT: Denies: throat pain or dental pain Card: Denies: chest pain Resp: Denies: dyspnea GI: Reports: abdominal pain; Denies: nausea, vomiting or diarrhea Skin/Breast: Denies: rash PFSH ED 2 PFSH: Medical History Synovial cyst of lumbar spine Moderate major depression Fatty liver disease, nonalcoholic Left groin pain Skin rash Stress incontinence Chronic cystitis Hypothyroid Lupus Hx of positive serology? Surgical History S/P laparoscopic assisted vaginal hysterectomy (LAVH) Due to bleeding. Performed in [place] approximately 17 years ago. Still has ovaries. S/P endometrial ablation Family History Family/Other Cervical cancer Maternal Other CAD (coronary artery disease) Cancer Multiple sclerosis No pertinent family history in first degree relatives Psychiatric illness Rheumatoid arthritis Denies family history of Diabetes Lupus Chronic kidney disease (CKD) Anesthesia complication Bleeding disorder Lung disease Hypertension Stroke Social History Smoking and tobacco/nicotine status: never used tobacco/nicotine Second hand smoke exposure: No Alcohol intake: never Substance/Drug Use: never Lives independently: Yes Marital status: Number of children: 4 Current occupational status: unemployed Radha/Jain: [employer] Special radha needs: No Agree to transfusion: Yes Physical Exam 2 Const: COMMON NORMALS: no acute distress, patient oriented x3 and healthy appearing HENMT: COMMON NORMALS: normocephalic and atraumatic HEAD & SCALP: n ormocephalic and atraumatic Eye: COMMON NORMALS: Equal, round and reactive pupils present and EOMs intact bilaterally PUPIL: Yes Equal, round and reactive pupils present Neck/C-Spine: COMMON NORMALS: full ROM and supple Chest: COMMONS NORMALS: normal inspection of the chest and normal palpation of entire chest wall Resp: COMMON NORMALS: normal respiratory effort, No retractions, No use of accessory muscles and clear to auscultation bilaterally AUSCULTATION: clear to auscultation bilaterally Cardio: COMMON NORMALS: regular rate, regular rhythm and No murmurs present (Cardio) RATE: regular rate RHYTHM: regular rhythm GI: COMMON NORMALS: Normal to inspection, nondistended, normoactive bowel sounds present, Soft to palpation, non-tender and no masses PALPATION: Yes Soft to palpation Extremity: COMMON NORMALS: normal to inspection and full ROM Neuro: COMMON NORMALS: patient oriented x3, moves all extremities and no focal motor deficits Psych: COMMON NORMALS: mental status grossly normal, Normal thought process present and cooperative THOUGHT PROCESS: Normal thought process present Skin: COMMON NORMALS: no rashes or lesions noted and no wounds GENERAL SKIN EXAM: no rashes or lesions noted Course 2 Vital Signs: Vital signs: Vital Signs Temperature 98.0 F 11/16/23 01:47 Pulse Rate 79 11/16/23 03:08 Respiratory Rate 16 11/16/23 03:08 Blood Pressure 127/93 11/16/23 03:08 Pulse Oximetry 100 11/16/23 03:08 Oxygen Delivery Me thod Nasal Cannula 11/16/23 02:36 Oxygen Flow Rate 2 11/16/23 02:36 [facility] - General Adult Medical Decision Making Patient presents here with abdominal pain ongoing for weeks her exam here is benign blood works normal no signs of acute surgical abdomen. She had slight headache no severe headache no signs of subarachnoid hemorrhage or meningitis. She has no signs of carotid dissection she is follow-up with PCP return if worsening Medical Records I reviewed the patient's medical records. Lab Data I reviewed the patient's lab results. 11/16/23 02:06 11/16/23 02:06 Laboratory Results WBC 5.30 10^3/uL (3.29-11.43) 11/16/23 02:06 RBC 4.18 10^6/uL (3.85-5.65) 11/16/23 02:06 Hgb 13.30 g/dL (11.27-16.99) 11/16/23 02:06 Hct 40.1 % (36-47) 11/16/23 02:06 MCV 95.9 fl (85-98) 11/16/23 02:06 MCH 31.8 pg (27-33) 11/16/23 02:06 MCHC 33.2 g/dL (30-55) 11/16/23 02:06 RDW 12.7 % (12.1-15.1) 11/16/23 02:06 Plt Count 254 10^3/cmm (157-399) 11/16/23 02:06 MPV 8.9 fL (7.4-10.4) 11/16/23 02:06 Neut % (Auto) 41.4 % 11/16/23 02:06 Lymph % (Auto) 42.3 % 11/16/23 02:06 [place] % (Auto) 13.4 % 11/16/23 02:06 Eos % (Auto) 2.1 % 11/16/23 02:06 Baso % (Auto) 0.6 % 11/16/23 02:06 Neut # (Auto) 2.20 10^3/uL (1.8-7.7) 11/16/23 02:06 Lymph # (Auto) 2.2 10^3/uL (0.8-4.8) 11/16/23 02:06 [place] # (Auto) 0.7 10^3/uL (0.2-0.9) 11/16/23 02:06 Eos # (Auto) 0.1 10^3/uL (0.0-0.8) 11/16/23 02:06 Baso # (Auto) 0.0 10^3/uL (0.0-0.1) 11/16/23 02:06 Nucleated RBC % (auto) 0 % 11/16/23 02:06 Nucleated RBCs # 0.0 /100WBC 11/16/23 02:06 Sodium 140 mmol/L (136-145) 11/16/23 02:06 Potassium 4.3 mmol/L (3.5-5.1) 11/16/23 02:06 Chloride 101 mmol/L (98-107) 11/16/23 02:06 Carbon Dioxide 28 mmol/L (22-29) 11/16/23 02:06 Anion Gap 15.3 (5-19) 11/16/23 02:06 BUN 9 mg/dL (6-20) 11/16/23 02:06 Creatinine 0.7 mg/dL (0.5-0.9) 11/16/23 02:06 GFR Calculation 88.9 mL/min (90-130) L 11/16/23 02:06 Glucose 117 mg/dL (65-115) H 11/16/23 02:06 Calculated Osmolality 290 mOsm/kg (285-295) 11/16/23 02:06 Calcium 9.5 mg/dL (8.5-10.5) 11/16/23 02:06 Total Bilirubin 0.3 mg/dL (0.15-1.2) 11/16/23 02:06 AST 25 U/L (0-32) 11/16/23 02:06 ALT 29 U/L (0-33) 11/16/23 02:06 Alkaline Phosphatase 95 U/L (35-105) 11/16/23 02:06 Total Protein 6.5 g/dL (6.6-8.7) L 11/16/23 02:06 Albumin 4.3 g/dL (3.5-5.2) 11/16/23 02:06 Globulin 2.2 g/dL (1.3-4.6) 11/16/23 02:06 Lipase 17 U/L (13-60) 11/16/23 02:06 No radiology studies performed this visit EKG Data EKG 1: I personally reviewed and interpreted this EKG as follows: EKG interpretation date: 11/16/23 EKG interpretation time: 02:24 Interpretation: nsr hr [address] or t wave abnormalities qrs 92 qtc 389 Discharge Plan Discharge Patient Disposition: Home Clinical Impression: Abdominal pain, Headache Condition: Stable Prescriptions: No Action mecobalamin (vitamin B12) 5,000 mcg tablet,disintegrating 5,000 mcg PO DAILY ondansetron 8 mg tablet,disintegrating 8 mg PO Q12H PRN (Reason: nausea and vomiting) Qty: 7 0RF methylprednisolone 4 mg tablet 4 mg PO DAILY baclofen 5 mg tablet 5 mg PO TID gabapentin 300 mg capsule 300 mg PO BID Qty: 60 1RF oxycodone 10 mg tablet 10 mg PO Q4H PRN (Reason: pain) 14 Days Qty: 84 0RF levothyroxine 100 mcg capsule 100 mcg PO DAILY Qty: 90 1RF atorvastatin [Lipitor] 20 mg tablet 20 mg PO DAILY Qty: 90 1RF diazepam [Valium] 5 mg tablet 5 mg PO TID PRN (Reason: muscle spasm) 7 Days Qty: 21 0RF escitalopram oxalate 20 mg tablet 20 mg PO DAILY Qty: 60 1RF Advil 200 mg Tablet 800 mg PO Q6H PRN (Reason: Pain) Vitamin D3 125 mcg (5,000 unit) Tablet 125 mcg PO DAILY Discharge Orders: Discharge ED (Routine); Ordered 11/16/23 Ordered By: Yohannes Temple Referrals: Garret Evans MD [Primary Care Provider] - 4-7 days Discharge Diet: Advance as tolerated Discharge Activity: Resume usual activity Patient Instructions: Abdominal Pain (ED) Coding Level of Care Code ED Water Plumber for Abeba Coker
[2023-11-16 02:15] LABS: Basophils % 0.6 %; Eosinophils # 0.1 10^3/uL (0.0-0.8); Eosinophils % 2.1 %; Hematocrit 40.1 % (36-47); Lymphocytes # 2.2 10^3/uL (0.8-4.8); Lymphocytes % 42.3 %; Mean Corpuscular HGB Conc 33.2 g/dL (30-55); Mean Corpuscular Hemoglobin 31.8 pg (27-33); Mean Corpuscular Volume 95.9 fl (85-98); Mean Platelet Volume 8.9 fL (7.4-10.4); Monocytes # 0.7 10^3/uL (0.2-0.9); Monocytes % 13.4 %; Neutrophils % 41.4 %; Nucleated Red Blood Cells % 0 %; Platelet Count 254 10^3/cmm (157-399); Red Blood Count 4.18 10^6/uL (3.85-5.65); Red Cell Distribution Width 12.7 % (12.1-15.1)
--- NOTE | 2023-11-16 02:24 | ECG_ITS ---
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 Measurements Intervals [place] Rate: 74 P: 40 IA: 155 QRS: 56 QRSD: 92 T: 7 QT: 362 QTc: 402 Interpretive Statements SINUS RHYTHM NONSPECIFIC T-WAVE ABNORMALITY No previous ECG available for comparison Electronically Signed On 11-16-2023 21:55:21 CDT by Yunior Puente M.D. [id number]
[2023-11-16] MEDS: morphine 4 mg/mL SDV 1 mL IVP (02:27)
[2023-11-16] MEDS: ondansetron 2 mg/ML SDV 2 mL 4 MG IVP (02:27)
[2023-11-16 02:36] VITALS: BP 127/79; PULSE 74; RESP 14; O2SAT 99
[2023-11-16 02:37] LABS: Alanine Aminotransferase 29 U/L (0-33); Albumin Level 4.3 g/dL (3.5-5.2); Alkaline Phosphatase 95 U/L (35-105); Aspartate Amino Transferase 25 U/L (0-32); Blood Urea Nitrogen 9 mg/dL (6-20); Calcium 9.5 mg/dL (8.5-10.5); Carbon Dioxide 28 mmol/L (22-29); Chloride 101 mmol/L (98-107); Creatinine Clr Calc Pharmacy 108.1783; Globulin 2.2 g/dL (1.3-4.6); Glomerular Filtration Rate 88.9 mL/min (90-130); Glucose 117 mg/dL (65-115); Lipase 17 U/L (13-60); Osmolality Calculated 290 mOsm/kg (285-295); Sodium 140 mmol/L (136-145); Total Bilirubin 0.3 mg/dL (0.15-1.2); Total Protein 6.5 g/dL (6.6-8.7)
[2023-11-16 02:38] LABS: Anion Gap 15.3 (5-19); Potassium 4.3 mmol/L (3.5-5.1)
[2023-11-16 03:08] VITALS: BP 127/93; PULSE 79; RESP 16; O2SAT 100
[2023-11-16] MEDS: ketorolac 30 mg/mL INJ 15 MG IVP (03:29)
== END 2023-11-16 03:29 | disposition home or self-care (01) ==
PROVIDERS: Emergency Provider Emergency Medicine; PCP Family Medicine
DX: R10.9 Unspecified abdominal pain (principal); R51.9 Headache, unspecified
CPT/HCPCS: 36415; 80053; 83690; 85025; 93005; 96374; 96375; 99284; J1885; J2270; J2405

== ENCOUNTER 2023-11-24 16:18 | Observation (INO) | payer MEDICAID, SELFPAY ==
[2023-11-24] VITALS (28 sets, daily range): BP systolic 99–119; BP diastolic 66–101; PULSE 78–95; RESP 11–19; TEMP 36.5–36.8; O2SAT 90–98; BMI 34.9; BMI 34.5
[2023-11-24] MEDS: sodium chloride 0.9% 1,000 ML 30 ML IV (10:50)
[2023-11-24] MEDS: scopolamine 1.5 Patch 1 PATCH TRANSDERMA (10:51)
--- NOTE | 2023-11-24 11:50 | P.ANESASSM_ITS ---
Pre-Anesthetic Assessment Height/Weight: Height 1.65 m Weight 95.254 kg Temp Pulse Resp BP Pulse Ox O2 Del Method 97.8 F 95 18 116/84 97 Room Air 11/24/23 10:29 11/24/23 10:29 11/24/23 10:29 11/24/23 10:51 11/24/23 10:29 11/24/23 10:35 Preop Diagnosis: Lumbar stenosis with neurogenic claudication Operation Date: 11/24/23 11:40 Proposed Procedures p Lumbar Spine Decompression Lumbar Decompression(Not Applicable) - Aftab Webb, DO Familial anesthetic complications: PONV Was Beta Jamal taken within 24 hours: N/A Was Clonidine taken within 24 hours: N/A Last intake: Intake Last Liquid Date 11/23/23 Last Liquid Time 23:30 Last Solid Date 11/23/23 Last Solid Time 23:30 Social No alcohol and No tobacco Exam alert, oriented x 3, clear to auscultation bilaterally and regular rate & rhythm Airway Mallampati: Class II Dentition: other (bridge, fake tooth) Metabolic Hyperlipidemia and Thyroid Disease Musc/[facility] lupus Anesthetic Plan ASA status: 3 Anesthesia: General Risk of > 500 ml blood loss (7ml/kg in children): No Medications/Allergies Home Medications Medication Instructions Recorded Confirmed Last Taken Type mecobalamin (vitamin B12) 5,000 5,000 mcg PO DAILY 12/01/22 11/23/23 11/23/23 History mcg disintegrating tablet ibuprofen 200 mg tablet (Advil) 800 mg PO Q6H PRN Pain 05/28/23 11/23/23 Unknown History levothyroxine 100 mcg capsule 100 mcg PO DAILY #90 caps 06/04/23 11/23/23 11/24/23 Rx atorvastatin 20 mg tablet (Lipitor) 20 mg PO DAILY #90 tabs 07/27/23 11/23/23 11/23/23 Rx gabapentin 300 mg capsule 300 mg PO BID #60 caps 11/04/23 11/23/23 11/24/23 Rx oxycodone 10 mg tablet 10 mg PO Q4H PRN pain 14 days #84 11/09/23 11/23/23 11/20/23 Rx tabs escitalopram oxalate 20 mg tablet 20 mg PO DAILY #60 tabs 07/01/24 07/09/24 07/09/24 Rx Allergies Allergy/AdvReac Type Severity Reaction Status Date / Time No Known Allergies Allergy Verified 11/23/23 10:33 Current Medications Generic Name Dose Route Start Last Admin Trade Name Jhon PRN Reason Stop Dose Admin Sodium Chloride 1,000 mls @ 30 mls/hr 11/24/23 10:15 11/24/23 10:50 Sodium Chloride 0.9% IV 11/25/23 10:14 30 mls/hr .Q24H CARISSA Administration PFSH Anesthesia Medical History Synovial cyst of lumbar spine Moderate major depression Fatty liver disease, nonalcoholic Left groin pain Skin rash Stress incontinence Chronic cystitis Hypothyroid Lupus Hx of positive serology? Surgical History S/P laparoscopic assisted vaginal hysterectomy (LAVH) Due to bleeding. Performed in [place] approximately 17 years ago. Still has ovaries. S/P endometrial ablation Family History Family/Other Cervical cancer Maternal Other CAD (coronary artery disease) Cancer Multiple sclerosis No pertinent family history in first degree relatives Psychiatric illness Rheumatoid arthritis Denies family history of Diabetes Lupus Chronic kidney disease (CKD) Anesthesia complication Bleeding disorder Lung disease Hypertension Stroke Social History Smoking and tobacco/nicotine status: unknown if used tobacco/nicotine Second hand smoke exposure: No Alcohol intake: never Substance/Drug Use: never Lives independently: Yes Marital status: Number of children: 4 Current occupational status: unemployed Radha/Advent: J[employer] [facility] Special radha needs: No Agree to transfusion: Yes Data Anesthesia Cardiac Studies: No Data to Display
--- NOTE | 2023-11-24 11:52 | W.PM.OPSUD ---
Surgery/Procedure H&P Update DATE OF PROCEDURE: November 24, 2023 DATE H&P PERFORMED: 11/17/23 H&P UPDATE INFORMATION: I have reviewed H&P completed within last 30 days, I have examined patient prior to procedure and No changes to prior documentation PREOP DIAGNOSIS: Lumbar stenosis with neurogenic claudication PLANNED PROCEDURE: Operation Date: 11/24/23 11:40 Proposed Procedures p Lumbar Spine Decompression Lumbar Decompression(Not Applicable) - Aftab Webb DO
[2023-11-24] MEDS: ceFAZolin 2,000 MG in sodium chloride 0.9% (plus) 50 ML 100 MG IV (12:38)
[2023-11-24] MEDS: lidocaine-epi 1% 20 mL INJ INJECTION (13:26)
[2023-11-24] MEDS: vancomycin 1,000 MG SDV 1000 MG XX (13:31)
--- NOTE | 2023-11-24 15:17 | P.OP_ITS ---
Operative Report Date of procedure: November 24, 2023 Pre-op diagnosis: Lumbar stenosis with neurogenic claudication Post-op diagnosis: same Procedure done: 1. L3-4 laminectomy with partial facetectomies 2. L4-5 laminectomy with partial facetectomies 3. L5-S1 laminectomy with partial facetectomies 4. Revision spine surgery Surgeon: Aftab Webb DO Estimated blood loss (mL): 50 Procedure: 1. L3-4 laminectomy with partial facetectomies 2. L4-5 laminectomy with partial facetectomies 3. L5-S1 laminectomy with partial facetectomies 4. Revision spine surgery Patient is brought to the operative suite after undergoing anesthesia was placed in the prone position. All areas were well-padded. Patient was prepped and draped normal sterile fashion. Skin incision made from L3 down to S1. Subperiosteal dissection was made out to the facet joints from L3-4 down to L5- S1. Retractors were placed. Attention was first brought to the L5-S1 level. The rongeur was used to take down the spinous process. And then the laminectomy was performed using rongeur as well as hide high-speed bur lamina of L5 was thinned out. The Kerrison rongeur was then used to take down the remaining bone and then the ligamentum flavum was taken down from L5-S1. This was done bilaterally. Medial aspect of the facet joint was taken down on the right side. On the left side there was scar tissue this was taken down with a curved curette and the facet joint was identified and medial aspect was taken further. The scar tissue was peeled off of the disc and the S1 nerve root. The S1 nerve root was reflected and discectomy was performed at L5-S1. This was done using the curved curette the disc was irrigated out micropituitary was used to remove disc fragments. Next attention was brought to the L4-5 level. The rongeur was used to take down the L4 spinous process. The laminectomies performed using high-speed bur. Kerrison rongeur was then used to take the remaining thinned out bone from the lamina. Ligamentum flavum was taken down from L4-L5. Right side was decompressed using the Kerrison rongeur as well as high-speed bur. The left side there was scar tissue the computer was used for scar tissue off of the medial facet. The medial facet was taken further with a high-speed bur and curved curette and Kerrison rongeur. L5 nerve root was reflected displaced identified once the disc was opened and large disc fragments came out. Microcuries used to work up to this fragments displaced irrigated. Once this was complete attention was then brought to the next level. Attention was brought to the L3-4 level. Partial spinous process was taken down the limb was again taken down with a high-speed bur Kerrison rongeur was used to take down the L3 lamina. Medial aspect of facet joint the right side was taken down. The cyst that was present on MRI looks to be more scar tissue the scar tissue was taken down and walked off of the dura. And then the left side was scarred and this was taken down using sharp curette facet was taken medially with the high-speed bur and curved curette and Kerrison rongeur. Once laminectomy complete a Rowena was used to pass through the L3-4 foramen ensuring the L3 nerves were decompressed the L4 nerves were traced around the L4 pedicles through the L4-5 foramen bilaterally. L5 nerves were traced around the L5 pedicles and out the L4-5 S1 foramen. And the S1 nerves were traced around the S1 pedicles. Wounds were irrigated vancomycin powder was used deep drain was placed and wound was closed in layered fashion with 0 Vicryl 2-0 Vicryl and Monocryl suture. Sterile dressings were applied patient transferred to the PACU in stable condition.
[2023-11-24] MEDS: fentaNYL 50 mcg/mL INJ 2mL IVP ×2 (15:34→15:49)
--- NOTE | 2023-11-24 16:22 | ANE.PACU2 ---
Inpatient post-anesthesia follow up: Airway intact: Yes Vital signs: Temperature 98.2 F Pulse Rate 90 Respiratory Rate 15 Blood Pressure 99/75 Pulse Oximetry 90 Oxygen Delivery Me thod Room Air Oxygen Flow Rate 10 Fraction of Inspir ed Oxygen Hydration adequate: Yes Nausea and vomiting: No Pain level: 1 Mental status: Baseline
[2023-11-24] MEDS: morphine 4 mg/mL SDV 1 mL 2 MG IVP ×2 (16:58→20:24)
[2023-11-24] MEDS: docusate sodium 100 mg Capsule PO (17:01)
[2023-11-24] MEDS: oxyCODONE-APAP 10-325 mg Tablet PO ×2 (17:02→22:20)
[2023-11-24] MEDS: gabapentin 300 mg Capsule PO (17:02)
[2023-11-24] MEDS: lactated ringers 1,000 ML 90 ML IV (17:02)
[2023-11-24] MEDS: ketorolac 30 mg/mL INJ IVP (17:58)
[2023-11-24] MEDS: atorvastatin 40 mg Tablet PO (20:24)
[2023-11-24] MEDS: ceFAZolin 2,000 mg SDV 2000 MG IVP (20:24)
[2023-11-24] MEDS: water for injection-sterile 20 ML 60 ML (20:25)
[2023-11-25] VITALS (7 sets, daily range): BP systolic 99–126; BP diastolic 58–78; PULSE 76–84; RESP 16–17; TEMP 36.9–37.1; O2SAT 94–97
[2023-11-25] MEDS: ketorolac 30 mg/mL INJ IVP (01:01)
[2023-11-25] MEDS: morphine 4 mg/mL SDV 1 mL 2 MG IVP (02:14)
[2023-11-25] MEDS: lactated ringers 1,000 ML 90 ML IV (04:37)
[2023-11-25] MEDS: ceFAZolin 2,000 mg SDV 2000 MG IVP (04:38)
[2023-11-25] MEDS: water for injection-sterile 20 ML 60 ML (04:38)
[2023-11-25] MEDS: oxyCODONE-APAP 10-325 mg Tablet PO (07:54)
[2023-11-25] MEDS: levothyroxine 100 mcg Tablet PO (07:54)
[2023-11-25] MEDS: escitalopram 10 mg Tablet 20 MG PO (07:54)
[2023-11-25] MEDS: docusate sodium 100 mg Capsule PO (07:55)
[2023-11-25] MEDS: gabapentin 300 mg Capsule PO (07:55)
--- NOTE | 2023-11-25 08:22 | P.DS_ITS ---
Discharge Providers Date of Admission: 11/24/23 16:18 Date of Discharge: November 25, 2023 Attending Provider at Admission: Aftab Webb DO Attending Provider at Discharge: Aftab Webb DO Primary Care Provider: Garret Evans MD Reason for Visit Reason for Visit: M48.062 Physical Exam Narrative: Patient doing well sitting up in chair eating breakfast pain much improved. Urinary Catheter Management: Donahue: Cath Placed During This Visit: yes Reason for Continuing Indwelling Catheter: Other Urinary Catheter Date of Insertion: 11/24/23 Urinary Catheter Time of Insertion: 12:55 Discharge Data Studies Completed and Pending Pending at discharge Category Date Time Status C-arm Fluoroscopy [id number] Routine Exams 11/24/23 10:04 Taken Vitals Last Vital Signs Temp 98.7 F 11/25/23 08:00 Pulse 76 11/25/23 08:00 Resp 16 11/25/23 08:00 BP 126/78 11/25/23 08:00 Pulse Ox 97 11/25/23 08:00 O2 Del Method Room Air 11/25/23 06:15 O2 Flow Rate 10 11/24/23 15:17 Discharge Plan Discharge Patient Disposition: Home Condition: Stable Prescriptions: New oxycodone 5 mg tablet 5 mg PO Q4H PRN (Reason: pain) 7 Days Qty: 40 0RF Continued mecobalamin (vitamin B12) 5,000 mcg tablet,disintegrating 5,000 mcg PO DAILY gabapentin 300 mg capsule 300 mg PO BID Qty: 60 1RF oxycodone 10 mg tablet 10 mg PO Q4H PRN (Reason: pain) 14 Days Qty: 84 0RF levothyroxine 100 mcg capsule 100 mcg PO DAILY Qty: 90 1RF atorvastatin [Lipitor] 20 mg tablet 20 mg PO DAILY Qty: 90 1RF escitalopram oxalate 20 mg tablet 20 mg PO DAILY Qty: 60 1RF ibuprofen [Advil] 200 mg Tablet 800 mg PO Q6H PRN (Reason: Pain) Discharge Orders: Discharge Order (Routine); Ordered 11/25/23 Ordered By: Aftab Webb Discharge Diet: Advance as tolerated Discharge Activity: Limit activity as instructed Patient Instructions: Acute Wound Care (DC), Opioid Safety, Post Anesthesia Care Activity Restrictions/Additional Instructions: Thank you for [facility] for your care! The following is a list of instructions, from your provider, to follow upon your dis charge to ensure you have the optimal recovery from your recent injury orsurgery. Follow-up care is a maza part of your treatment and safety. Be sure to make and go to all appointments, and call your doctor if you are having problems. If you do not already have a follow-up appointment made, call Dr. Webb office in the next 1-3 days to make follow up appointment for 1 weeks at [phone]. It is also a good idea to know your test results and keep a list of the medicines you take. Medications will be prescribed for you at your provider's discretion. These medications are to be used as instructed; if they are taken more often that prescribed they will not be refilled early and in most cases will not be refilled at all. > When a refill is needed,you should contact shawanda lópez 2-3 business days before your prescription runs out. Medications will NOT be refilled by gas distribution plant operator providers after hours! > Many pain medications contain Tylenol (Acetaminophen). Do not consume more than 4,000 mg of Tylenol per day in total with any combination ofmedications. > Pain medications can cause constipation. Please use an over the counter stool softener as directed, while taking pain medications. Consulty our local pharmacist with questions or recommendations on stool softeners. If constipation persists, contact our office or your primary care provider. > While under our care,you are not to receive pain medications or other controlled substances from any other provider unless our office is notified and approves. Any attempts to do so will result in refusal to prescribe any further pain medications and possible dismissal from our practice. ? Your wound and/or dressing should remain clean and dry for 2 days after surgery. On postoperative day 2 (48 hours after your surgery) the dressing (if present) should be removed and it is okay to shower and get the incision wet. Pad dry afterwards. No further dressing should be required from that point on. Do not put any creams or ointments on theincision > It is normal for there to be a small amount of discharge (bloody or blood tinged) present from a surgical wound for the first 1-3days. > The wound should be examined twice a day for signs of infection. Mild redness or bruising is to be expected but indications that an infection maybe starting would include; An increase in redness, swelling, or discharge, a foul odor present around the incision, and/or a fever greater than 101 ?F ? Showering is permitted, however we ask that you do not take a bath, sit in a whirlpool / Jacuzzi, or go swimming for 1 month. For only the first 2 days after surgery, lt wilt be necessary for you to cover your wound/dressing with plastic and tape to keep it dry. ? Walking is essential for the healing process after surgery. We would like you to slowly advance your walking. This should be done on relatively flat clear ground (inside or out) or can be done on a treadmill. Remember this goal does not have to happen all at once, slowly increase your distance and duration. This can be broken into more more than one walk per day as tolerated. Patients who walk as directed after surgery rarely require Physical Therapy. In the unlikely event this issue arises your provider will direct hospital staff to make the appropriate arrangements. ? No lifting over 5 pounds {a gallon of milk) or bending/twisting until further notice. Each of these activities places an unnecessary amount of stress onto the body and can impede the delicate healing process. > Instead of bending at the waist, keep your back straight and bend at the knees. > Instead of twisting your torso, keep your back straight and turn your entire body with your feet. ? You may sleep in any position which makes you comfortable. Many patients find comfort sleeping in a reclining chair. It is not abnormal to have difficulty sleeping for the first several weeks following your surgery. We recommend trying Benadry! or Tylenol PM as directed to help with your sleeping difficulties. Both medications are over the counter and available withoutprescription. ? NO SMOKING!!! Smoking dramatically increases the probability of developing postoperative wound infections. ? Common complaints after lumbar and/or thoracic spine surgery include, but are not limited to: numbness and/or tingling in the legs, pain around the incision and surrounding tissues, muscle spasms, or stiffness of the middle to low back. Contact our office if these symptoms persist or if an acute change occurs. ? No driving for the first 3-5days, and not while taking narcotics [] until seen at your follow-up appointment and cleared. There are no restrictions for riding on short trips, however if you take a longer trip, arrangements should be made to make regular stops to get out of the vehicle and stretch . ? Swelling is an unfortunate event that will take place with any san rgery and is the primary source of your postoperative discomfort. While walking and regular approved activities helps control inflammation, there are additional steps you can take to minimizeswelling. > Place ice over the surgical site and surrounding tissue for twenty minutes, followed by applying a low/medium heat (heating pad) for an additional twenty minutes every 1-2 hours as needed for painrelief. > You may use of over the counter anti-inflammatory medications (Ibuprofen, Motrin, Aleve, Advil, etc) as directed on the package label. These types of medicines wm significantly reduce the amount of discomfort you experience after surgery from swelling. It should be noted that if you have and allergy to any of these medications, or a history of ulcers or kidney disease you should consult you primary care provider prior to starting these medications. Discharge Attestations Time Spent in Discharge Care*: less than 30 min Quality Metrics Clinical Quality Measures [ No reported AMI, CVA or VTE this stay] Coding Level of Care Code Acute Code for Chg Wilberd
--- NOTE | 2023-11-25 08:36 | XR_ITS ---
WS: [id number] INTRAOPERATIVE TECHNIQUE: 2 Spot fluoroscopic images for intraoperative purposes. FLUOROSCOPY TIME: 18.8 seconds CLINICAL INFORMATION: or pic, decompression FINDINGS: Localization instrument projected over the L3 spinous process dorsally. XR/XR lumbar spine 2-3V* [id number] IMPRESSION: Images obtained for intraoperative purposes.
--- NOTE | 2023-11-25 09:08 | PC.CHAP ---
Pastoral Care Encounter/Spiritual Assessment Type of Contact [] Declined wire steward visit [] Patient/Family/Request visit [] Outpatient visit [] Follow-up visit [] Physician referral [] Code/Alert [] Routine visit [] Staff referral [] Actively dying [] Patient sleeping [] Family support [] [] Out of room [] Palliative care [] [x] Receiving care in room [] Pre-surgical visit [] Trauma [] Long length of stay [] ICU visit [] Other: Relational/Emotional Strength [] Patient feels connected with others/family/visitors/staff [] Distress [] Loneliness/isolation [] Abandonment Spirituality of Patient [] Person of Radha [] Attends Yarsani of their Radha [] Believes in Prayer [] Reads Bible or Latter-Day materials [] There are Spiritual issues to be addressed Lining Mechanic Interventions [] Prayer [] Active listening [] Non-anxious presence [] Spiritual/emotional support [] Crisis/trauma care [] Spiritual counseling [] Bereavement support [] Provided bereavement packet [] Provided Bible/devotional materials [] Provided toy/stuffed animal, coloring book to patient or family member [] Provided Communion [] Anointing/[place] [] Salvation [] Completed spiritual assessment [] Other: Impact on Illness or Injury [] Angry [] Fearful [] Anxious [] Often cries [] Exhaustion [] Unable to work [] Unable to attend mosque [] Unable to walk/stand [] Unable to read [] Unable to drive [] Unable to eat/drink [] Unable to sleep [] Unable to be with family [] Patient intubated [] Other: Summary Time spent with patient
[2023-11-25] MEDS: oxyCODONE 5 mg IR Tab/Cap 10 MG PO (09:58)
--- NOTE | 2023-11-25 10:03 | PC.NURSE ---
This nurse removed hemovac. Intact.
== END 2023-11-25 11:03 | disposition home or self-care (01) ==
LOC: MEDSURG 16:18
PROVIDERS: Admitting Provider Orthopaedic Surgery; PCP Family Medicine; Visit Provider Orthopaedic Surgery
PROC: (CPT 63005; principal; 2023-11-24 11:20)
DX: M48.062 Spinal stenosis, lumbar region with neurogenic claudication (principal); E78.5 Hyperlipidemia, unspecified; E03.9 Hypothyroidism, unspecified
CPT/HCPCS: 63047; 63048 ×2; 51702; 72100; 76000; 97116; 97161; G0378; J0690; J1100; J1170; J1200; J1885; J2250; J2270; J2405; J2704; J3010; J3370; J3490; J7030; J7120

== ENCOUNTER → 2023-12-09 07:57 | Outpatient (BNVA) | payer MEDICAID, SELFPAY | PROVIDERS: PCP Family Medicine; Visit Provider Orthopaedic Surgery | DX: M47.896 Other spondylosis, lumbar region (principal) | CPT/HCPCS: 72100 ==

== ENCOUNTER → 2024-04-26 12:57 | Outpatient (BNVA) | payer MEDICAID, SELFPAY | PROVIDERS: PCP Family Medicine; Visit Provider Nurse Practitioner Women's Health | DX: N95.1 Menopausal and female climacteric states (principal) | CPT/HCPCS: 82670; 83001; 83002; 84402; 84403 ==

== ENCOUNTER 2024-06-09 13:26 | Emergency (ER) | payer MEDICAID, SELFPAY ==
[2024-06-09 13:38] VITALS: BP 134/64; PULSE 96; RESP 16; TEMP 36.6; O2SAT 94; BMI 35.7
--- NOTE | 2024-06-09 14:23 | XR_ITS ---
WS: [id number] KUB, AP supine view, 06/09/2024 Clinical Data: abd pain Comparison: KUB, 02/20/2020 Findings: No abnormal intraabdominal masses or calcifications are seen. There is no dilatated small bowel or ev idence of obstruction. There are are laminectomies at L4 and L5. There is a moderate amount of fecal material in the ascendi ng and transverse colon. There are minute sutures in the mid pelvis unchanged. XR/XR KUB [id number] Impression: Moderate fecal material in the colon.
--- NOTE | 2024-06-09 15:07 | ED_ITS ---
HPI - Abdominal Pain 2 General: Chief Complaint: Abdominal Pain Stated Complaint: pain in middle back area Time Seen by Provider: 06/09/24 15:01 History of Present Illness: 48-year-old female presents with right u pper quadrant pain that radiates down her right side into her back. Has been going on for 1 to 2 weeks. Is worse if she lays down. She reports that she has had 2 spine surgeries and she has some pain in that part of this finding chronically. She is not sure if it is related or not. She also complains of some pain in her right leg. She has some mild nausea no vomiting. She has taken a Zofran this morning for the nausea. Associated Symptoms: Reports constipation and nausea; Denies chills, fever(s) and vomiting Related Data Home Medications Medication Instructions Recorded Confirmed gabapentin 600 mg tablet 600 mg PO BID 06/09/24 06/09/24 ibuprofen 800 mg tablet 800 mg PO Q8H PRN Pain 06/09/24 06/09/24 levothyroxine 100 mcg tablet 100 mcg PO DAILY 06/09/24 06/09/24 ondansetron 4 mg disintegrating 4 mg PO Q8H PRN Nausea And Vomiting 06/09/24 06/09/24 tablet tramadol 50 mg tablet 50 mg PO Q8H PRN Pain 06/09/24 06/09/24 Previous Rx's Medication Instructions Recorded atorvastatin 20 mg tablet (Lipitor) 20 mg PO DAILY #90 tabs 02/28/24 escitalopram oxalate 20 mg tablet 20 mg PO DAILY #60 tabs 03/20/24 meclizine 25 mg tablet 25 mg PO TID PRN dizziness #14 tabs 04/26/24 baclofen 5 mg tablet 5 mg PO TID PRN muscle spasm #14 06/09/24 tabs hydrocodone 5 mg-acetaminophen 325 1 tab PO Q12H PRN pain #10 tabs 06/09/24 mg tablet Allergies Allergy/AdvReac Type Severity Reaction Status Date / Time No Known Allergies Allergy Verified 06/09/24 13:42 Review of Systems 2 Const: Denies: fever(s) or chills Card: Denies: chest pain Resp: Denies: dyspnea or productive cough GI: Reports: abdominal pain, nausea and constipation; Denies: vomiting : Denies: flank pain Musc: Reports: back pain Skin/Breast: Denies: rash Neuro: Denies: numbness in extremities, weakness in extremities or difficulty walking PFSH ED 2 PFSH: Medical History Synovial cyst of lumbar spine Moderate major depression Fatty liver disease, nonalcoholic Left groin pain Skin rash Stress incontinence Chronic cystitis Hypothyroid Lupus Hx of positive serology? Surgical History S/P laparoscopic assisted vaginal hysterectomy (LAVH) Due to bleeding. Performed in [place] approximately 17 years ago. Still has ovaries. S/P endometrial ablation Family History Family/Other Cervical cancer Maternal Other CAD (coronary artery disease) Cancer Multiple sclerosis No pertinent family history in first degree relatives Psychiatric illness Rheumatoid arthritis Denies family history of Diabetes Lupus Chronic kidney disease (CKD) Anesthesia complication Bleeding disorder Lung disease Hypertension Stroke Social History Smoking and tobacco/nicotine status: never used tobacco/nicotine Second hand smoke exposure: No Alcohol intake: never Substance/Drug Use: never Lives independently: Yes Marital status: Number of children: 4 Current occupational status: unemployed Radha/Yazdanism: [employer] [facility] Special radha needs: No Agree to transfusion: Yes Physical Exam 2 Const: COMMON NORMALS: no acute distress and patient oriented x3 N UTRITIONAL APPEARANCE: obese Resp: COMMON NORMALS: normal respiratory effort, No retractions and clear to auscultation bilaterally EFFORT & INSPECTION: Yes able to speak in complete sentences AUSCULTATION: clear to auscultation bilaterally Cardio: COMMON NORMALS: regular rate and regular rhythm RATE: regular rate RHYTHM: regular rhythm GI: COMMON NORMALS: Soft to palpation PALPATION: Yes Soft to palpation and Yes Tenderness to palpation present (GI) Details: RUQ Extremity: COMMON NORMALS: full ROM and capillary refill normal Neuro: COMMON NORMALS: patient oriented x3, moves all extremities, no focal motor deficits and deep tendon reflexes 2+ bilaterally Course 2 Vital Signs: Vital signs: Vital Signs Temperature 97.9 F 06/09/24 13:38 Pulse Rate 96 06/09/24 13:38 Respiratory Rate 16 06/09/24 13:38 Blood Pressure 134/64 06/09/24 13:38 Pulse Oximetry 94 06/09/24 13:38 Oxygen Delivery Me thod Room Air 06/09/24 13:38 MDM - Abdominal Pain Medical Decision Making Patient's diagnostic studies ordered reviewed and interpreted by me. Patient has no significant findings on her CMP or CBC. I did obtain a CT abdomen pelvis due to her significant complaints of discomfort there is no significant finding on CT. KUB did show some moderate stool. Discussed findings with patient. Recommend she continue to follow-up with her primary care provider she been having issues with this flank pain for some time. May be related to her recent back surgery. Patient was stable and discharged home Lab Data 06/09/24 15:23 06/09/24 15:23 Labs/Radiology: Radiology Impressions KUB X-Ray 06/09/24 14:23 Impression: Moderate fecal material in the colon. Abdomen/Pelvis CT 06/09/24 16:17 IMPRESSION: 1. No acute findings. 2. 2 mm right renal calculus. 3. Hepatomegaly with geographic fatty infiltration of the liver. Laboratory Results WBC 5.90 10^3/uL (3.29-11.43) 06/09/24 15:23 RBC 4.53 10^6/uL (3.85-5.65) 06/09/24 15:23 Hgb 14.00 g/dL (11.27-16.99) 06/09/24 15:23 Hct 42.6 % (36-47) 06/09/24 15:23 MCV 94.0 fl (85-98) 06/09/24 15:23 MCH 30.9 pg (27-33) 06/09/24 15:23 MCHC 32.9 g/dL (30-55) 06/09/24 15:23 RDW 12.6 % (12.1-15.1) 06/09/24 15:23 Plt Count 248 10^3/cmm (157-399) 06/09/24 15:23 MPV 8.8 fL (7.4-10.4) 06/09/24 15:23 Neut % (Auto) 58.5 % 06/09/24 15:23 Lymph % (Auto) 27.5 % 06/09/24 15:23 Irion % (Auto) 11.4 % 06/09/24 15:23 Eos % (Auto) 1.7 % 06/09/24 15:23 Baso % (Auto) 0.7 % 06/09/24 15:23 Neut # (Auto) 3.46 10^3/uL (1.8-7.7) 06/09/24 15:23 Lymph # (Auto) 1.6 10^3/uL (0.8-4.8) 06/09/24 15:23 Irion # (Auto) 0.7 10^3/uL (0.2-0.9) 06/09/24 15:23 Eos # (Auto) 0.1 10^3/uL (0.0-0.8) 06/09/24 15:23 Baso # (Auto) 0.0 10^3/uL (0.0-0.1) 06/09/24 15:23 Nucleated RBC % (auto) 0 % 06/09/24 15:23 Nucleated RBCs # 0.0 /100WBC 06/09/24 15:23 Sodium 137 mmol/L (136-145) 06/09/24 15:23 Potassium 4.3 mmol/L (3.5-5.1) 06/09/24 15:23 Chloride 101 mmol/L (98-107) 06/09/24 15:23 Carbon Dioxide 25 mmol/L (22-29) 06/09/24 15:23 Anion Gap 15.3 (5-19) 06/09/24 15:23 BUN 10 mg/dL (6-20) 06/09/24 15:23 Creatinine 0.6 mg/dL (0.5-0.9) 06/09/24 15:23 GFR Calculation 106.3 mL/min (90-130) 06/09/24 15:23 Glucose 105 mg/dL (65-115) 06/09/24 15:23 Calculated Osmolality 283 mOsm/kg (285-295) L 06/09/24 15:23 Calcium 9.1 mg/dL (8.5-10.5) 06/09/24 15:23 Total Bilirubin 0.4 mg/dL (0.15-1.2) 06/09/24 15:23 AST 26 U/L (0-32) 06/09/24 15:23 ALT 29 U/L (0-33) 06/09/24 15:23 Alkaline Phosphatase 115 U/L (35-105) H 06/09/24 15:23 Total Protein 6.8 g/dL (6.6-8.7) 06/09/24 15:23 Albumin 4.4 g/dL (3.5-5.2) 06/09/24 15:23 Globulin 2.4 g/dL (1.3-4.6) 06/09/24 15:23 Lipase 18 U/L (13-60) 06/09/24 15:23 All radiology interpretation(s) finalized by discharge Discharge Plan Discharge Patient Disposition: Home Clinical Impression: Right flank pain Condition: Stable Prescriptions: New hydrocodone-acetaminophen 5-325 mg tablet 1 tab PO Q12H PRN (Reason: pain) Qty: 10 0RF baclofen 5 mg tablet 5 mg PO TID PRN (Reason: muscle spasm) Qty: 14 0RF No Action meclizine 25 mg tablet 25 mg PO TID PRN (Reason: dizziness) Qty: 14 0RF atorvastatin [Lipitor] 20 mg tablet 20 mg PO DAILY Qty: 90 1RF escitalopram oxalate 20 mg tablet 20 mg PO DAILY Qty: 60 1RF gabapentin 600 mg tablet 600 mg PO BID ibuprofen 800 mg tablet 800 mg PO Q8H PRN (Reason: Pain) tramadol 50 mg tablet 50 mg PO Q8H PRN (Reason: Pain) ondansetron 4 mg tablet,disintegrating 4 mg PO Q8H PRN (Reason: Nausea And Vomiting) levothyroxine 100 mcg tablet 100 mcg PO DAILY Rx Instructions: Take 1 tablet by mouth once daily Discharge Orders: Discharge ED (Routine); Ordered 06/09/24 Ordered By: Savage Redmond Referrals: Garret Evans MD [Primary Care Provider] - Discharge Diet: Usual diet Discharge Activity: Increase activity as tolerated Patient Instructions: Flank Pain (ED), Opioid Safety, Pain Management Activity Restrictions/Additional Instructions: Please follow-up with your primary care provider early next week. You may discuss a HIDA scan for further evaluation of your gallbladder with them. Stand Alone Forms: Work/School Release Coding Level of Care Code ED Drier Operator Helper for Abeba Coker
[2024-06-09 15:34] LABS: Basophils % 0.7 %; Eosinophils # 0.1 10^3/uL (0.0-0.8); Eosinophils % 1.7 %; Hematocrit 42.6 % (36-47); Lymphocytes # 1.6 10^3/uL (0.8-4.8); Lymphocytes % 27.5 %; Mean Corpuscular HGB Conc 32.9 g/dL (30-55); Mean Corpuscular Hemoglobin 30.9 pg (27-33); Mean Platelet Volume 8.8 fL (7.4-10.4); Monocytes # 0.7 10^3/uL (0.2-0.9); Monocytes % 11.4 %; Neutrophils # 3.46 10^3/uL (1.8-7.7); Neutrophils % 58.5 %; Nucleated Red Blood Cells % 0 %; Platelet Count 248 10^3/cmm (157-399); Red Blood Count 4.53 10^6/uL (3.85-5.65); Red Cell Distribution Width 12.6 % (12.1-15.1)
[2024-06-09 15:51] LABS: Alanine Aminotransferase 29 U/L (0-33); Albumin Level 4.4 g/dL (3.5-5.2); Alkaline Phosphatase 115 U/L (35-105); Anion Gap 15.3 (5-19); Aspartate Amino Transferase 26 U/L (0-32); Blood Urea Nitrogen 10 mg/dL (6-20); Calcium 9.1 mg/dL (8.5-10.5); Carbon Dioxide 25 mmol/L (22-29); Chloride 101 mmol/L (98-107); Globulin 2.4 g/dL (1.3-4.6); Glomerular Filtration Rate 106.3 mL/min (90-130); Glucose 105 mg/dL (65-115); Lipase 18 U/L (13-60); Osmolality Calculated 283 mOsm/kg (285-295); Potassium 4.3 mmol/L (3.5-5.1); Sodium 137 mmol/L (136-145); Total Bilirubin 0.4 mg/dL (0.15-1.2); Total Protein 6.8 g/dL (6.6-8.7)
--- NOTE | 2024-06-09 16:17 | CTR_ITS ---
PROCEDURE INFORMATION: Exam: CT Abdomen And Pelvis Without Contrast Exam date and time: 06/09/2024 4:46 PM Age: 48 years old Clinical indication: Abdominal pain; Additional info: Flank pain TECHNIQUE: Imaging protocol: Computed tomography of the abdomen and pelvis without contrast. Radiation optimization: All CT scans at this facility use at least one of these dose optimization techniques: automated exposure control; mA and/or kV adjustment per patient size (includes targeted exams where dose is matched to clinical indication); or iterative reconstruction. COMPARISON: CT abdomen pelvis w con* [id number] 10/01/2022 10:34 AM RADIATION DOSE METRICS: Total DLP (mGy-cm): 908.01 FINDINGS: Liver: Geographic fatty infiltration of the liver. Hepatomegaly. Gallbladder and biliary ducts: Hyperdense sludge in the gallbladder. No visible stones or wall thickening. The bile ducts are normal. Pancreas: Normal. No ductal dilation. Spleen: Normal. No splenomegaly. Adrenal glands: Normal. No mass. Kidneys and ureters: 2 mm calculus in the inferior right kidney. No ureteral calculus or hydronephrosis. The left kidney is normal. Stomach and bowel: Stool in the proximal and transverse colon. The distal colon and rectum are decompressed. The stomach and small bowel are unremarkable. No wall thickening or obstruction. Appendix: The appendix is visualized and is normal. Intraperitoneal space: Unremarkable. No free air. No significant fluid collection. Vasculature: Unremarkable. No abdominal aortic aneurysm. Lymph nodes: Unremarkable. No enlarged lymph nodes. Urinary bladder: Unremarkable as visualized. Reproductive: Hysterectomy. Normal ovaries. Bones/joints: L4-S1 decompressive laminectomies. Mild degenerative changes with disc space narrowing at L5-S1. No fracture. Soft tissues: Soft tissue scarring in the lumbar region from previous surgery. CT/CT abdomen pelvis wo con [id number] IMPRESSION: 1. No acute findings. 2. 2 mm right renal calculus. 3. Hepatomegaly with geographic fatty infiltration of the liver.
[2024-06-09] MEDS: ondansetron 2 mg/ML SDV 2 mL 4 MG IM (18:10)
[2024-06-09] MEDS: orphenadrine 30 mg/mL Inj 2 mL 60 MG IM (18:10)
[2024-06-09] MEDS: ketorolac 30 mg/mL INJ IM (18:11)
== END 2024-06-09 18:49 | disposition home or self-care (01) ==
PROVIDERS: Emergency Provider Student in an Organized Health Care Education/Training Program; PCP Family Medicine
DX: R10.11 Right upper quadrant pain (principal)
CPT/HCPCS: 36415; 74018; 74176; 80053; 83690; 85025; 96372; 99284; J1885; J2360; J2405

== ENCOUNTER → 2024-06-22 08:37 | Outpatient (BNVA) | payer MEDICAID, SELFPAY | PROVIDERS: PCP Family Medicine; Visit Provider Family Medicine | DX: E03.9 Hypothyroidism, unspecified (principal) | CPT/HCPCS: 84439; 84443 ==

== ENCOUNTER 2024-07-10 14:18 | Outpatient (RCR) | payer MEDICAID, SELFPAY | END 2024-07-14 23:59 | disposition home or self-care (01) | LOC: SPT 14:18 | PROVIDERS: Visit Provider Family Medicine | DX: M54.2 Cervicalgia (principal); G89.29 Other chronic pain | CPT/HCPCS: 97110; 97161 ==

== ENCOUNTER 2024-07-15 06:00 | Outpatient (RCR) | payer MEDICAID, SELFPAY | END 2024-08-14 23:59 | disposition home or self-care (01) | LOC: SPT 06:00 | PROVIDERS: Visit Provider Family Medicine | DX: M54.2 Cervicalgia (principal); G89.29 Other chronic pain | CPT/HCPCS: 97110 ==

== ENCOUNTER 2024-08-10 12:25 | Emergency (ER) | payer MEDICAID, SELFPAY ==
[2024-08-10 12:47] VITALS: BP 145/92; PULSE 100; RESP 18; TEMP 36.7; O2SAT 96; BMI 37.4
--- NOTE | 2024-08-10 14:55 | ED_ITS ---
HPI - Back Pain/Injury General: Chief Complaint: Back Pain/Injury Stated Complaint: waist to foot pain Time Seen by Provider: 08/10/24 14:21 Mode of arrival: wheelchair Limitations: no limitations History of Present Illness: 49yo female presents via private vehicle for evaluation of low back pain that has been radiating into the right leg for the past 2 weeks, but is now rating it to the left as well. Patient reports she has had 2 lumbar spinal surgeries with the last one being a lumbar laminectomy with Dr. Webb November 2023. Patient reports that she has had 2 previous synovial cysts of the lumbar spine and this feels very similar. She states she is having such significant pain with ambulating that she is decreasing her activity level. States she feels as if she is having a harder time voiding, but is also concerned of a urinary tract infection. Patient denies incontinence, groin numbness/tingling, lower extremity weakness, recent illness, fever. Late addition of reports of spasms to the low back Associated symptoms: Deny chills or fever(s) Related Data Home Medications ?Medication ?Instructions ?Recorded ?Confirmed ondansetron 4 mg disintegrating 4 mg PO Q8H PRN Nausea And Vomiting 06/09/24 08/10/24 tablet Previous Rx's ?Medication ?Instructions ?Recorded atorvastatin 20 mg tablet (Lipitor) 20 mg PO DAILY #90 tabs 02/28/24 levothyroxine 100 mcg tablet 100 mcg PO DAILY #90 tabs 06/22/24 ketorolac 10 mg tablet 10 mg PO Q6H 5 days #20 tabs 08/10/24 orphenadrine citrate 100 mg 100 mg PO Q12H PRN pain, s pasm #20 08/10/24 tablet,extended release tabs Allergies Allergy/AdvReac Type Severity Reaction Status Date / Time No Known Allergies Allergy Verified 06/22/24 07:55 Review of Systems Const: Denies: fever(s), chills or body aches Card: Denies: chest pain Resp: Denies: dyspnea : Reports: difficulty voiding; Denies: urinary incontinence Neuro: Denies: headache(s) PFS ED PFSH: Medical History Synovial cyst of lumbar spine Moderate major depression Fatty liver disease, nonalcoholic Left groin pain Skin rash Stress incontinence Chronic cystitis Hypothyroid Lupus Hx of positive serology? Surgical History S/P laparoscopic assisted vaginal hysterectomy (LAVH) Due to bleeding. Performed in [place] approximately 17 years ago. Still has ovaries. S/P endometrial ablation Family History Family/Other Cervical cancer Maternal Other CAD (coronary artery disease) Cancer Multiple sclerosis No pertinent family history in first degree relatives Psychiatric illness Rheumatoid arthritis Denies family history of Diabetes Lupus Chronic kidney disease (CKD) Anesthesia complication Bleeding disorder Lung disease Hypertension Stroke Social History Smoking and tobacco/nicotine status: never used tobacco/nicotine Second hand smoke exposure: No Alcohol intake: never Substance/Drug Use: never Lives independently: Yes Marital status: Number of children: 4 Current occupational status: unemployed Radha/Presybeterian: [employer] [facility] Special radha needs: No Agree to transfusion: Yes Physical Exam Const: COMMON NORMALS: patient oriented x3, healthy appearing and alert GENERAL APPEARANCE: cooperative ORIENTATION/CONSCIOUSNESS: Yes awake, Yes oriented to person, Yes oriented to place and Yes oriented to time OTHER: Patient is sitting upright on the stretcher in no acute distress. She is able to give history with no difficulty. She is interactive with exam appropriately. No family is at bedside HENMT: COMMON NORMALS: normocephalic HEAD & SCALP: normocephalic Neck/C-Spine: COMMON NORMALS: full ROM Resp: COMMON NORMALS: normal respiratory effort and No use of accessory muscles Back/Pelvis: LUMBAR SPINE/LOWER BACK: Yes pain with ROM, Yes paraspinal muscle tenderness and Yes straight leg raise positive right Neuro: COMMON NORMALS: patient oriented x3 and moves all extremities SENSORIUM/ORIENTATION: Yes alert, Yes oriented to person, Yes oriented to place and Yes oriented to time SENSORY EXAM: Yes extremities right light-touch: dec reased (compared to left, medially) Psych: COMMON NORMALS: cooperative ATTITUDE: Yes calm Course ED course: 1510 - discussed case with Dr Webb. If MRI available, obtain here, if not, he will order from his clinic. Can see pt in clinic next week. 1530 - Unable to obtain MRI as they have left for the day Vital Signs: Vital signs: Vital Signs Temperature 98.1 F 08/10/24 12:47 Pulse Rate 100 08/10/24 12:47 Respiratory Rate 18 08/10/24 12:47 Blood Pressure 145/92 08/10/24 12:47 Pulse Oximetry 96 08/10/24 12:47 Oxygen Delivery Me thod Room Air 08/10/24 12:47 MDM - Back Pain/Injury Medical Decision Making 49yo female here via private vehicle for evaluation of low back pain that has been radiating into the right leg for the past 2 weeks, but is now rating it to the left as well. Patient reports she has had 2 lumbar spinal surgeries with the last one being a lumbar laminectomy with Dr. Webb November 2023. Patient reports that she has had 2 previous synovial cysts of the lumbar spine and this feels very similar. She states she is having such significant pain with ambulating that she is decreasing her activity level. States she feels as if she is having a harder time voiding, but is also concerned of a urinary tract infection. Also reports low back spasms. Patient denies incontinence, groin numbness/tingling, lower extremity weakness, recent illness, fever. Patient is nontoxic in appearance. Vital signs are stable. Differential diagnoses include but are not limited to: Lumbar radiculopathy, back spasms, synovial cyst, spinal epidural abscess, acute cystitis No cauda equina symptoms. No fever, malaise, spinal tenderness, motor weakness, or bowel/bladder dysfunction to indicate a spinal epidural abscess. UA is cloudy, but otherwise grossly unremarkable. Discussed case with Dr. Webb, if MRI available obtained here. He can see patient in clinic next week. MRI not available this afternoon as the tech has already left for the day and is not on- call. Discussed these recommendations with patient. Will proceed with intravenous ketorolac and orphenadrine and attempt to help with her discomfort and reevaluate. Patient did report some improvement in her pain. She was able to sit up and ambulate in the exam room unassisted. She reported that she still did have pain. Discussed with patient that the pain should not be completely gone, only improved. Prescriptions of ketorolac and orphenadrine sent to patient's pharmacy, sedation precautions provided with orphenadrine. Recommend she avoid bending, heavy lifting, and vigorous activities. Encourage patient to call Dr. Webb's office tomorrow to schedule an appointment for next week. Return precautions provided. Patient states understanding and has no further questions or concerns at this time. Medical Records I reviewed the patient's medical records. Lumbar laminectomies on 05/26/2023 and 11/24/2023. Last MRI 08/04/2023. Previous MRI indicating synovial cyst of the right was on 03/10/2022. Labs I reviewed the patient's lab results. Laboratory Results Urine Color Yellow (Yellow) 08/10/24 14:30 Urine Appearance Cloudy (CLEAR) A 08/10/24 14:30 Urine pH 6.0 (5-7) 08/10/24 14:30 Ur Specific [place] 1.013 (1.005-1.030) 08/10/24 14:30 Urine Protein Negative (Negative) 08/10/24 14:30 Urine Glucose (UA) Negative (Normal) 08/10/24 14:30 Urine Ketones Negative (Negative) 08/10/24 14:30 Urine Blood Negative (Negative) 08/10/24 14:30 Urine Nitrate Negative (Negative) 08/10/24 14:30 Urine Bilirubin Negative (Negative) 08/10/24 14:30 Urine Urobilinogen 0.2 mg/dL (Negative) 08/10/24 14:30 Ur Leukocyte Esterase Negative (Negative) 08/10/24 14:30 Urine RBC 0-2 /hpf (0-2) 08/10/24 14:30 Urine WBC 0-5 /hpf (0-5) 08/10/24 14:30 Ur Squamous Epith Cells 0-5 /hpf (0-5) 08/10/24 14:30 Amorphous Sediment Not Reportable 08/10/24 14:30 Urine Bacteria None seen /hpf (NONE) 08/10/24 14:30 Hyaline Casts 0-4 /lpf H 08/10/24 14:30 No radiology studies performed this visit Discharge Plan Discharge Patient Disposition: Home Clinical Impression: Lumbar radiculopathy Condition: Stable Prescriptions: New ketorolac 10 mg tablet 10 mg PO Q6H 5 Days Qty: 20 0RF orphenadrine citrate 100 mg tablet extended release 100 mg PO Q12H PRN (Reason: pain, spasm) Qty: 20 0RF Discontinued ibuprofen 800 mg tablet 800 mg PO Q8H PRN (Reason: Pain) tizanidine 4 mg tablet 4 mg PO DAILY PRN (Reason: back pain ) No Action levothyroxine 100 mcg tablet 100 mcg PO DAILY Qty: 90 1RF Rx Instructions: Take 1 tablet by mouth once daily atorvastatin [Lipitor] 20 mg tablet 20 mg PO DAILY Qty: 90 1RF ondansetron 4 mg tablet,disintegrating 4 mg PO Q8H PRN (Reason: Nausea And Vomiting) Discharge Orders: Discharge ED (Routine); Ordered 08/10/24 Ordered By: Michael Mcnamara Discharge Diet: Usual diet Discharge Activity: Increase activity as tolerated Activity Restrictions/Additional Instructions: Ketorolac and orphenadrine have been sent to your pharmacy to help with your pain. Please do not drive or operate heavy machinery while taking orphenadrine Activity as tolerated. Avoid any bending or heavy lifting Please call Dr. Webb's office tomorrow to schedule a follow-up appointment next week Return to the emergency department if any rapid worsening symptoms, incontinence, groin numbness/tingling, lower extremity weakness, and as needed Print Language: [place] Coding Level of Care Code ED Business Associate for Abeba Coker
[2024-08-10 14:59] LABS: Bilirubin Urine Negative (Negative); Blood Urine Negative (Negative); Glucose Urine UA Negative (Normal); Ketones Urine Negative (Negative); Leukocyte Esterase Urine Negative (Negative); Nitrate Urine Negative (Negative); Protein Urine Negative (Negative); Specific Gravity, Urine 1.013 (1.005-1.030); Urine Appearance Cloudy (CLEAR); Urine Color Yellow (Yellow); Urobilinogen Urine 0.2 mg/dL (Negative)
[2024-08-10 15:04] LABS: Add Urine Microscopic? YES; Bacteria Urine None Seen /hpf; Hyaline Casts Urine 0-4 /lpf; RBC Urine 0-2 /hpf (0-2); Squamous Epithelial Cell Urine 0-5 /hpf (0-5); WBC Urine 0-5 /hpf (0-5)
[2024-08-10 15:05] LABS: Add Urine Culture? No
[2024-08-10] MEDS: ketorolac 30 mg/mL INJ IVP (16:28)
[2024-08-10] MEDS: dexamethasone 4 mg/mL INJ IVP (16:28)
[2024-08-10] MEDS: orphenadrine 30 mg/mL Inj 2 mL 60 MG IVP (16:28)
== END 2024-08-10 17:30 | disposition home or self-care (01) ==
PROVIDERS: Emergency Provider Nurse Practitioner
DX: M54.16 Radiculopathy, lumbar region (principal)
CPT/HCPCS: 81001; 96374; 96375; 99284; J1100; J1885; J2360

== ENCOUNTER → 2024-09-12 14:30 | Outpatient (BNVA) | payer MEDICAID, SELFPAY | PROVIDERS: PCP Family Medicine; Visit Provider Orthopaedic Surgery | DX: M54.50 Low back pain, unspecified (principal); M79.604 Pain in right leg; M79.605 Pain in left leg; M54.9 Dorsalgia, unspecified | CPT/HCPCS: 72100 ==

== ENCOUNTER → 2024-10-16 14:10 | Outpatient (BNVA) | payer MEDICAID, SELFPAY | PROVIDERS: PCP Family Medicine; Visit Provider Family Medicine | DX: E03.9 Hypothyroidism, unspecified (principal); J06.9 Acute upper respiratory infection, unspecified; E83.42 Hypomagnesemia | CPT/HCPCS: 80053; 82306; 82607; 82746; 83735; 84439; 84443 ==

== ENCOUNTER → 2024-11-09 15:05 | Outpatient (BNVA) | payer MEDICAID, SELFPAY | PROVIDERS: PCP Family Medicine; Visit Provider Nurse Practitioner Women's Health | DX: L68.0 Hirsutism (principal) | CPT/HCPCS: 84132 ==

== ENCOUNTER → 2025-01-10 15:04 | Outpatient (BNVA) | payer MEDICAID, SELFPAY | PROVIDERS: PCP Family Medicine; Visit Provider Nurse Practitioner Women's Health | DX: L68.0 Hirsutism (principal) | CPT/HCPCS: 84132 ==

== ENCOUNTER 2025-01-26 23:04 | Emergency (ER) | payer MEDICAID, SELFPAY ==
[2025-01-26 23:24] VITALS: BP 130/81; PULSE 78; RESP 18; TEMP 36.8; O2SAT 97; BMI 34.4
[2025-01-27] MEDS: tetracaine 0.5% Op Soln 4 mL Btl 1 DROP EYE-LEFT (01:00)
[2025-01-27 01:13] VITALS: BP 124/91; PULSE 70; O2SAT 95
--- NOTE | 2025-01-27 01:23 | W.ED.EYEPROB ---
HPI - Eye Problem General: Chief complaint: Eye Problems Stated complaint: something in right eye Time Seen by Provider: 01/27/25 00:31 History of Present Illness: Patient is a 49-year-old female who presents with eye discomfort that began several hours ago while scrolling through her phone. She reports feeling like something fell into her eye. Prior to arrival, she attempted to flush the eye multiple times without relief. Patient continues to experience pain and discomfort in the affected eye with some visual disturbances, stating 'I'm seeing things that I shouldn't with it.' She reports mild blurriness in the affected eye. Patient has a history of dry eyes and previous discomfort in the same eye. She attributes her dry eyes to underlying medical conditions including lupus and hypothyroidism. The eye has been tearing on and off, though patient notes she generally has dry eyes at baseline. Related Data Previous Rx's ?Medication ?Instructions ?Recorded escitalopram oxalate 20 mg tablet 20 mg PO DAILY #90 tabs 08/16/24 estradiol 0.5 mg tablet 0.5 mg PO DAILY #90 tabs 08/17/24 atorvastatin 20 mg tablet (Lipitor) 20 mg PO DAILY #90 tabs 10/09/24 fluconazole 150 mg tablet 150 mg PO Q3D 2 doses #2 tabs 10/16/24 levothyroxine 100 mcg tablet 100 mcg PO DAILY #90 tabs 10/17/24 ropinirole 2 mg tablet 2 mg PO BID #120 tabs 10/31/24 ondansetron 4 mg disintegrating 4 mg PO BID PRN nausea and 11/09/24 tablet vomiting #60 tabs pantoprazole 40 mg tablet,delayed 40 mg PO BID #60 tabs 11/09/24 release (Protonix) pantoprazole 40 mg tablet,delayed 40 mg PO DAILY PRN acid reflux #60 11/09/24 release (Protonix) tabs progesterone micronized 200 mg 200 mg PO BEDTIME #90 caps 11/09/24 capsule prednisone 20 mg tablet 20 mg PO DAILY 5 days #5 tabs 01/10/25 spironolactone 100 mg tablet 100 mg PO DAILY #30 tabs 01/10/25 ketorolac 0.4 % eye drops 1 drp ophthalmic (eye) Q6H 4 days 01/27/25 #5 mL polymyxin B sulfate 10,000 1 drp ophthalmic (eye) QID 7 days 01/27/25 unit-trimethoprim 1 mg/mL eye drops #10 mL Allergies Allergy/AdvReac Type Severity Reaction Status Date / Time No Known Allergies Allergy Verified 01/10/25 14:48 PFSH ED PFSH: Medical History (Updated 01/27/25 @ 01:24 by Chan Dupont DO) Restless leg No pertinent past medical history neghx: htn,dm,dvt/pe PCP: [facility], [place] Synovial cyst of lumbar spine Moderate major depression Fatty liver disease, nonalcoholic Left groin pain Skin rash Stress incontinence Chronic cystitis Hypothyroid Lupus Hx of positive serology? Surgical History Status post lumbar spine surgery for decompression of spinal cord S/P laparoscopic assisted vaginal hysterectomy (LAVH) Due to bleeding. Performed in [place] approximately 17 years ago. Still has ovaries. S/P endometrial ablation Family History Family/Other Cervical cancer Maternal Other CAD (coronary artery disease) Cancer Multiple sclerosis No pertinent family history in first degree relatives Psychiatric illness Rheumatoid arthritis Denies family history of Diabetes Lupus Chronic kidney disease (CKD) Anesthesia complication Bleeding disorder Lung disease Hypertension Stroke Social History Smoking and tobacco/nicotine status: never used tobacco/nicotine Second hand smoke exposure: No Alcohol intake: never Substance/Drug Use: never Lives independently: Yes Marital status: Number of children: 4 Current occupational status: unemployed Radha/Latter Day: [employer] [facility] Special radha needs: No Agree to transfusion: Yes Physical Exam Const: COMMON NORMALS: no acute distress GENERAL APPEARANCE: cooperative; not ill appearing HENMT: COMMON NORMALS: normocephalic and atraumatic HEAD & SCALP: normocephalic and atraumatic FACE & SINUS: normal facial exam and face symmetric Eye: COMMON NORMALS: Equal, round and reactive pupils present and EOMs intact bilaterally EYELID: eyelids normal CORNEA: Yes fluorescein used (small uptake 10:00 position) PUPIL: Yes Equal, round and reactive pupils present Resp: COMMON NORMALS: normal respiratory effort Course Vital Signs: Vital signs: Vital Signs Temperature 98.2 F 01/26/25 23:24 Pulse Rate 69 01/27/25 01:33 Respiratory Rate 18 01/26/25 23:24 Blood Pressure 124/91 01/27/25 01:33 Pulse Oximetry 95 01/27/25 01:33 Oxygen Delivery Me thod Room Air 01/26/25 23:24 MDM - Eye Problem Medical Decision Making Small corneal abrasion. Ketorolac and Polytrim. Return for any worsening symptoms. Ophthalmology follow-up. No radiology studies performed this visit Discharge Plan Discharge Patient Disposition: Home Clinical Impression: Corneal abrasion Condition: Stable Prescriptions: New polymyxin B sulf-trimethoprim 10,000 unit- 1 mg/mL drops 1 drp ophthalmic (eye) QID 7 Days Qty: 10 0RF ketorolac 0.4 % drops 1 drp ophthalmic (eye) Q6H 4 Days Qty: 5 0RF No Action pantoprazole [Protonix] 40 mg tablet,delayed release (DR/EC) 40 mg PO DAILY PRN (Reason: acid reflux) Qty: 60 0RF Rx Instructions: to start as needed AFTER completing twice daily tablets. start no sooner than 12/09/24 pantoprazole [Protonix] 40 mg tablet,delayed release (DR/EC) 40 mg PO BID Qty: 60 0RF ondansetron 4 mg tablet,disintegrating 4 mg PO BID PRN (Reason: nausea and vomiting) Qty: 60 2RF prednisone 20 mg tablet 20 mg PO DAILY 5 Days Qty: 5 0RF fluconazole 150 mg tablet 150 mg PO Q3D 0 Days Qty: 2 0RF estradiol 0.5 mg tablet 0.5 mg PO DAILY Qty: 90 1RF progesterone micronized 200 mg capsule 200 mg PO BEDTIME Qty: 90 2RF Rx Instructions: take once daily spironolactone 100 mg tablet 100 mg PO DAILY Qty: 30 1RF Rx Instructions: take once daily escitalopram oxalate 20 mg tablet 20 mg PO DAILY Qty: 90 1RF atorvastatin [Lipitor] 20 mg tablet 20 mg PO DAILY Qty: 90 1RF levothyroxine 100 mcg tablet 100 mcg PO DAILY Qty: 90 1RF ropinirole 2 mg tablet 2 mg PO BID Qty: 120 1RF Discharge Orders: Discharge ED (Routine); Ordered 01/27/25 Ordered By: Chan Dupont Referrals: Cesar Lovelace [Physician, Opthalmology] - 1-3 days Garret Evans MD [Primary Care Provider, Family Practice] Patient Instructions: Corneal Abrasion (ED), Opioid Safety, Pain Management, Patient Portal & Silva Instructions Activity Restrictions/Additional Instructions: Eyedrops as directed. Return for worsening vision, worsening pain, worsening drainage despite treatment. Call ophthalmology on Wednesday for a follow-up appointment. Let them know you were seen here. Print Language: [place] Coding Level of Care Code ED Microarray Operations Vice President for Abeba Coker
[2025-01-27 01:33] VITALS: BP 124/91; PULSE 69; O2SAT 95
== END 2025-01-27 01:35 | disposition home or self-care (01) ==
PROVIDERS: Emergency Provider Emergency Medicine; PCP Family Medicine
DX: S05.01XA Injury of conjunctiva and corneal abrasion without foreign body, right eye, initial encounter (principal); X58.XXXA Exposure to other specified factors, initial encounter
CPT/HCPCS: 99283; J9999

== ENCOUNTER → 2025-04-17 15:30 | Outpatient (BNVA) | payer MEDICAID, SELFPAY | PROVIDERS: PCP Family Medicine; Visit Provider Nurse Practitioner Women's Health | DX: Z01.419 Encounter for gynecological examination (general) (routine) without abnormal findings (principal); L65.9 Nonscarring hair loss, unspecified | CPT/HCPCS: 80053; 82306; 84402; 84403; 84439; 84443; 84481; 85025 ==